=== PATIENT | female | born 1955 | race Caucasian/White ===

== ENCOUNTER → 2016-04-24 | Outpatient (CLI) | payer MEDICARE ==
[~2016-04-24] MED LIST: ACID REDUCER75 MG PO; ALBUTEROL0.09 MG/A2 INH; ALBUTEROL2.5 MG/0.5 INH; ALLERGY10 MG PO; CEFTIN500 M1 PO; CETIRIZINE10 MG PO; CRESTOR5 MG PO; DULARA INH; FLEXERIL10 MG PO; HYDROCODONE BIT1 T11 PO; IBUPROFEN200 M1 PO; LEVAQUIN750 MG PO; LISINOPRIL AND1 TAB PO; LOSARTAN POTASS1 TA5 PO; MOTRIN800 MG PO; NEXIUM20 M1 PO; NORCO 5-325 TA1 EACH PO; PERCOCET 325 MG1 TA2 PO; PERCOCET 325 MG1 TA5 PO; PREDNICOT20 MG PO; RANITIDINE HCL150 M1 PO; ROBAXIN500 MG PO; SINGULAIR10 M1 PO; SINGULAIR10 MG PO; SPIRIVA -- 3018 MCG INH; SPIRIVA18 MCG PO; SYMBICORT1 AE1 IH; SYMBICORT1 AE1 INH; TESSALON PERLE200 MG PO; THEO-24200 MG PO; THEOPHYLLINE PO; TRAMADOL HCL50 MG PO; VENTOLIN H0.09 MG/AC INH; VICODIN 5/500 505 MG PO; VITAMIN D50000 I2 PO; ZANTAC 300300 MG PO; ZOFRAN ODT4 MG SL; ZOFRAN4 MG PO
== END | disposition home or self-care (01) ==
LOC: LAB 12:14
PROVIDERS: Internal Medicine Critical Care Medicine
DX: J44.9 Chronic obstructive pulmonary disease, unspecified (principal)

== ENCOUNTER → 2016-07-22 | Outpatient (CLI) | payer MEDICARE | END | disposition home or self-care (01) | LOC: RAD 11:00 | DX: M81.0 Age-related osteoporosis without current pathological fracture (principal); M25.561 Pain in right knee; M25.562 Pain in left knee ==

== ENCOUNTER 2016-11-15 10:25 | Emergency (ER) | payer MEDICARE ==
[~2016-11-15] VITALS: Ht 152.4 cm; Wt 79.4 kg
[2016-11-15 10:42] VITALS: BP 112/64
[2016-11-15 11:21] LABS: BASO # 0.1 10*3/uL (0.0-0.1); BASO % 0.5 % (0.0-1.0); EOS # 0.2 10*3/uL (0.0-0.4); EOS % 1.1 % (1.0-4.0); HEMATOCRIT 39.7 % (37.0-47.0); HEMOGLOBIN 13.1 g/dl (12.0-16.0); IG # 0.1 10*3/uL (0.0-0.1); LYMPH # 3.2 10*3/uL (1.3-4.4); LYMPH % 22.4 % (27.0-41.0); MEAN CELL VOLUME 89.6 fl (81.0-99.0); MEAN CORPUSCULAR HGB 29.6 pg (27.0-31.0); MONO # 1.4 10*3/uL (0.1-1.0); MONO % 9.7 % (3.0-9.0); NEUT # 9.5 10*3/uL (2.3-7.9); NEUT % 65.9 % (47.0-73.0); PLATELET COUNT AUTOMATED 241 10*3/uL (130-400); RED BLOOD COUNT 4.43 10*6/uL (4.10-5.10); RED CELL DISTRI WIDTH 14.3 % (0-14.5); WHITE BLOOD COUNT 14.4 10*3/uL (4.8-10.8)
[2016-11-15 11:36] LABS: ALBUMIN 3.7 gm/dl (3.1-4.5); ALKALINE PHOSPHATASE 89 U/L (45-117); BILIRUBIN, TOTAL 0.7 mg/dl (0.2-1.0); BUN 11 mg/dl (7-24); CARBON DIOXIDE 27 mmol/L (21-32); CHLORIDE 100 mmol/L (98-107); EST GLOM FILT AFRICAN AMERICAN > 60 ml/min; GLUCOSE 101 mg/dL (65-99); POTASSIUM 3.6 mmol/L (3.5-5.1); SGOT/AST 19 IU/L (3-35); SGPT/ALT 30 U/L (12-78); SODIUM 135 mmol/L (136-145); TOTAL PROTEIN 7.5 gm/dL (6.4-8.2)
[2016-11-15 12:27] LABS: BILIRUBIN 1+ (NEGATIVE); BLOOD NEGATIVE (NEGATIVE); CLARITY SL CLOUDY (CLEAR); COLOR YELLOW (YELLOW); GLUCOSE NEGATIVE (NEGATIVE); KETONE TRACE (NEGATIVE); LEUKO ESTERASE NEGATIVE (NEGATIVE); NITRITE NEGATIVE (NEGATIVE); PROTEIN 1+ (NEGATIVE); SPECIFIC GRAVITY 1.025 (1.005-1.030)
[2016-11-15 12:36] LABS: BACTERIA TRACE; MUCOUS 1+
[2016-11-15 12:37] LABS: URINE REFLEX COMMENT NO (NO)
[2016-11-15] MEDS ORDERED: AUGMENTIN 875875 MG PO (13:06)
[2016-11-15] MEDS ORDERED: NORCO 5-325 TA1 EACH PO (13:06)
[2016-11-15] MEDS ORDERED: Zofran4 MG PO (13:06)
== END 2016-11-15 14:09 | disposition home or self-care (01) ==
LOC: ED 10:25 → EDHOLD 12:20 → ED 14:09
PROVIDERS: Emergency Medicine
DX: K57.32 Diverticulitis of large intestine without perforation or abscess without bleeding (principal); R10.84 Generalized abdominal pain; J44.9 Chronic obstructive pulmonary disease, unspecified; K21.9 Gastro-esophageal reflux disease without esophagitis; I10 Essential (primary) hypertension; F17.200 Nicotine dependence, unspecified, uncomplicated; Z87.442 Personal history of urinary calculi; Z90.49 Acquired absence of other specified parts of digestive tract; Z79.899 Other long term (current) drug therapy; Z88.1 Allergy status to other antibiotic agents; Z88.6 Allergy status to analgesic agent

== ENCOUNTER → 2017-09-30 | Outpatient (CLI) | payer MEDICARE ==
[~2017-09-30] MED LIST changes: +AUGMENTIN 875875 MG PO; +Zofran4 MG PO
== END | disposition home or self-care (01) ==
LOC: RAD 11:18
DX: J43.9 Emphysema, unspecified (principal)

== ENCOUNTER → 2017-12-29 | Outpatient (CLI) | payer MEDICARE | END | disposition home or self-care (01) | LOC: RESCLI 00:55 | DX: J43.9 Emphysema, unspecified (principal); K21.9 Gastro-esophageal reflux disease without esophagitis; E78.5 Hyperlipidemia, unspecified; I10 Essential (primary) hypertension; F32.9 Major depressive disorder, single episode, unspecified; M81.0 Age-related osteoporosis without current pathological fracture; M17.31 Unilateral post-traumatic osteoarthritis, right knee; G89.29 Other chronic pain; M17.12 Unilateral primary osteoarthritis, left knee; K57.90 Diverticulosis of intestine, part unspecified, without perforation or abscess without bleeding; Z79.899 Other long term (current) drug therapy; Z88.8 Allergy status to other drugs, medicaments and biological substances ==

== ENCOUNTER → 2018-01-28 | Outpatient (CLI) | payer MEDICARE ==
[2018-01-28 10:28] LABS: BASO # 0.1 10*3/uL (0.0-0.1); BASO % 1.2 % (0.0-1.0); EOS # 0.3 10*3/uL (0.0-0.4); EOS % 3.8 % (1.0-4.0); HEMATOCRIT 42.7 % (37.0-47.0); LYMPH # 3.3 10*3/uL (1.3-4.4); LYMPH % 40.3 % (27.0-41.0); MEAN CELL VOLUME 91.8 fl (81.0-99.0); MEAN CORPUSCULAR HGB 30.1 pg (27.0-31.0); MEAN CORPUSCULAR HGB CONC 32.8 g/dl (33.0-37.0); MEAN PLATELET VOLUME 11.4 fl (9.6-12.3); MONO # 0.6 10*3/uL (0.1-1.0); MONO % 7.6 % (3.0-9.0); NEUT # 3.8 10*3/uL (2.3-7.9); NEUT % 46.9 % (47.0-73.0); PLATELET COUNT AUTOMATED 241 10*3/uL (130-400); RED BLOOD COUNT 4.65 10*6/uL (4.10-5.10); RED CELL DISTRI WIDTH 13.8 % (0-14.5); WHITE BLOOD COUNT 8.1 10*3/uL (4.8-10.8)
[2018-01-28 10:46] LABS: ALBUMIN 3.7 gm/dl (3.1-4.5); BUN 17 mg/dl (7-24); CHLORIDE 102 mmol/L (98-107); CHOLESTEROL 215 mg/dL (<200); CREATININE 0.69 mg/dL (0.55-1.02); POTASSIUM 3.5 mmol/L (3.5-5.1); SGOT/AST 14 IU/L (3-35); SGPT/ALT 21 U/L (12-78); SODIUM 136 mmol/L (136-145); TOTAL PROTEIN 7.4 gm/dL (6.4-8.2); TRIGLYCERIDES 114 mg/dl (<150); VLDL CHOLESTEROL 23 mg/dL (6-40)
[2018-01-28 10:55] LABS: ALKALINE PHOSPHATASE 69 U/L (45-117); HDL CHOLESTEROL 65 mg/dl (40-60); LDL CHOLESTEROL 127 mg/dL (9-159)
== END | disposition home or self-care (01) ==
LOC: LAB 09:42
PROVIDERS: Internal Medicine Pulmonary Disease
DX: I10 Essential (primary) hypertension (principal); E78.5 Hyperlipidemia, unspecified; G89.29 Other chronic pain; Z79.899 Other long term (current) drug therapy

== ENCOUNTER → 2018-02-02 | Outpatient (CLI) | payer MEDICARE | END | disposition home or self-care (01) | LOC: RESCLI 01:18 | DX: J43.9 Emphysema, unspecified (principal); K21.9 Gastro-esophageal reflux disease without esophagitis; E78.5 Hyperlipidemia, unspecified; J45.909 Unspecified asthma, uncomplicated; I10 Essential (primary) hypertension; F32.9 Major depressive disorder, single episode, unspecified; M81.0 Age-related osteoporosis without current pathological fracture; M17.31 Unilateral post-traumatic osteoarthritis, right knee; G89.29 Other chronic pain; M17.12 Unilateral primary osteoarthritis, left knee; K57.90 Diverticulosis of intestine, part unspecified, without perforation or abscess without bleeding ==

== ENCOUNTER → 2018-06-23 | Outpatient (CLI) | payer OTHER ==
[~2018-06-23] MED LIST changes: +DOXYCYCLINE100 M3 PO; -LOSARTAN POTASS1 TA5 PO; +LOSARTAN-HCTZ1 EACH PO; +MUCINEX ER600 MG PO; +PREDNISONE10 MG PO; +SYMB160 INH; -SYMBICORT1 AE1 INH; +TAMIFLU 75MG CA75 MG PO; -THEO-24200 MG PO; +THEO-24400 MG PO
== END | disposition home or self-care (01) ==
LOC: RESCLI 01:44
DX: J43.9 Emphysema, unspecified (principal); K21.9 Gastro-esophageal reflux disease without esophagitis; I10 Essential (primary) hypertension; K57.90 Diverticulosis of intestine, part unspecified, without perforation or abscess without bleeding; J30.2 Other seasonal allergic rhinitis; R00.0 Tachycardia, unspecified; Z79.899 Other long term (current) drug therapy; Z90.49 Acquired absence of other specified parts of digestive tract

== ENCOUNTER → 2018-10-28 | Outpatient (CLI) | payer OTHER | END | disposition home or self-care (01) | LOC: RESCLI 00:38 | DX: J43.9 Emphysema, unspecified (principal); F17.219 Nicotine dependence, cigarettes, with unspecified nicotine-induced disorders; I10 Essential (primary) hypertension; K21.9 Gastro-esophageal reflux disease without esophagitis; M25.521 Pain in right elbow; M25.522 Pain in left elbow; J30.2 Other seasonal allergic rhinitis; Z71.6 Tobacco abuse counseling; Z79.899 Other long term (current) drug therapy ==

== ENCOUNTER → 2019-01-05 | Outpatient (CLI) | payer OTHER | END | disposition home or self-care (01) | LOC: RESCLI 02:16 | DX: J30.2 Other seasonal allergic rhinitis (principal); I10 Essential (primary) hypertension; J43.9 Emphysema, unspecified; K21.9 Gastro-esophageal reflux disease without esophagitis; Z79.899 Other long term (current) drug therapy ==

== ENCOUNTER → 2019-05-24 | Outpatient (CLI) | payer OTHER | END | disposition home or self-care (01) | LOC: RESCLI 02:06 | DX: Z23 Encounter for immunization (principal); F32.1 Major depressive disorder, single episode, moderate; J43.9 Emphysema, unspecified; K21.9 Gastro-esophageal reflux disease without esophagitis; I10 Essential (primary) hypertension; F17.210 Nicotine dependence, cigarettes, uncomplicated; Z79.899 Other long term (current) drug therapy ==

== ENCOUNTER 2019-07-24 18:55 | Emergency (ER) | payer OTHER ==
[~2019-07-24] VITALS: Wt 90.7 kg
[2019-07-24 19:32] LABS: BASO # 0.1 10*3/uL (0.0-0.1); BASO % 0.9 % (0.0-1.0); EOS # 0.2 10*3/uL (0.0-0.4); EOS % 2.1 % (1.0-4.0); HEMATOCRIT 41.5 % (37.0-47.0); LYMPH # 4.6 10*3/uL (1.3-4.4); LYMPH % 42.6 % (27.0-41.0); MEAN CELL VOLUME 91.4 fl (81.0-99.0); MEAN CORPUSCULAR HGB 29.7 pg (27.0-31.0); MEAN CORPUSCULAR HGB CONC 32.5 g/dl (33.0-37.0); MEAN PLATELET VOLUME 11.1 fl (9.6-12.3); MONO # 0.8 10*3/uL (0.1-1.0); NEUT % 47.1 % (47.0-73.0); PLATELET COUNT AUTOMATED 228 10*3/uL (130-400); RED BLOOD COUNT 4.54 10*6/uL (4.10-5.10); RED CELL DISTRI WIDTH 14.3 % (0-14.5); WHITE BLOOD COUNT 10.7 10*3/uL (4.8-10.8)
[2019-07-24 19:49] LABS: ALBUMIN 3.7 gm/dl (3.1-4.5); ALKALINE PHOSPHATASE 77 U/L (45-117); BUN 15 mg/dl (7-24); CHLORIDE 106 mmol/L (98-107); CREATININE 0.65 mg/dL (0.55-1.02); POTASSIUM 3.4 mmol/L (3.5-5.1); SGOT/AST 21 IU/L (3-35); SGPT/ALT 39 U/L (12-78); SODIUM 136 mmol/L (136-145); TOTAL PROTEIN 7.5 gm/dL (6.4-8.2); TROPONIN I < 0.015 ng/ml (<0.045)
[2019-07-24 19:51] LABS: ACT PARTIAL THROMBO TIME 27.4 SECONDS (20.0-32.1)
[2019-07-24] MEDS ORDERED: TYLENOL325 M1 PO (22:54)
[2019-07-24] MEDS ORDERED: THEOPHYLLINE A200 M1 PO (22:54)
[2019-07-24] MEDS ORDERED: CELEXA20 MG PO (22:54)
[2019-07-24] MEDS ORDERED: LEVOFLOXACIN500 MG PO (22:54)
== END 2019-07-24 23:39 | disposition home or self-care (01) ==
LOC: ED 18:55
PROVIDERS: Emergency Medicine Emergency Medical Services
DX: J20.9 Acute bronchitis, unspecified (principal); J44.9 Chronic obstructive pulmonary disease, unspecified; F41.9 Anxiety disorder, unspecified; F41.0 Panic disorder [episodic paroxysmal anxiety]; I10 Essential (primary) hypertension; E78.5 Hyperlipidemia, unspecified; K21.9 Gastro-esophageal reflux disease without esophagitis; F17.200 Nicotine dependence, unspecified, uncomplicated; Z90.49 Acquired absence of other specified parts of digestive tract; Z88.8 Allergy status to other drugs, medicaments and biological substances; Z79.899 Other long term (current) drug therapy

== ENCOUNTER → 2019-10-28 | Outpatient (CLI) | payer OTHER ==
[~2019-10-28] MED LIST changes: +CELEXA20 MG PO; +LEVOFLOXACIN500 MG PO; +THEOPHYLLINE A200 M1 PO; +TYLENOL325 M1 PO
== END | disposition home or self-care (01) ==
LOC: RESCLI 01:49
DX: Z12.4 Encounter for screening for malignant neoplasm of cervix (principal); Z12.31 Encounter for screening mammogram for malignant neoplasm of breast; J43.9 Emphysema, unspecified; K21.9 Gastro-esophageal reflux disease without esophagitis; E78.5 Hyperlipidemia, unspecified; J45.909 Unspecified asthma, uncomplicated; I10 Essential (primary) hypertension; F32.9 Major depressive disorder, single episode, unspecified; M81.0 Age-related osteoporosis without current pathological fracture; M17.31 Unilateral post-traumatic osteoarthritis, right knee; G25.81 Restless legs syndrome; E66.01 Morbid (severe) obesity due to excess calories; Z68.45 Body mass index [BMI] 70 or greater, adult

== ENCOUNTER → 2019-11-14 | Outpatient (CLI) | payer OTHER ==
[~2019-11-14] MED LIST changes: +MUCUS-ER MAX1200 MG PO; +TESSALON PERLE100 M1 PO
== END | disposition home or self-care (01) ==
LOC: RAD 13:30 → MAMMO 14:00
DX: Z12.31 Encounter for screening mammogram for malignant neoplasm of breast (principal); M85.89 Other specified disorders of bone density and structure, multiple sites; M81.0 Age-related osteoporosis without current pathological fracture

== ENCOUNTER 2019-11-15 09:27 | Emergency (ER) | payer OTHER ==
[~2019-11-15] VITALS: Ht 167.6 cm; Wt 81.2 kg
[~2019-11-15 09:27] MED LIST changes: -MUCUS-ER MAX1200 MG PO; -TESSALON PERLE100 M1 PO
[2019-11-15] MEDS ORDERED: AUGMENTIN 875875 MG PO (09:39)
[2019-11-15] MEDS ORDERED: MUCUS-ER MAX1200 MG PO (09:49)
[2019-11-15] MEDS ORDERED: TESSALON PERLE100 M1 PO (09:49)
== END 2019-11-15 09:40 | disposition home or self-care (01) ==
LOC: ED 09:27
DX: H65.92 Unspecified nonsuppurative otitis media, left ear (principal); J44.9 Chronic obstructive pulmonary disease, unspecified; K21.9 Gastro-esophageal reflux disease without esophagitis; I10 Essential (primary) hypertension; E78.5 Hyperlipidemia, unspecified; Z79.899 Other long term (current) drug therapy

== ENCOUNTER → 2019-11-15 | Outpatient (CLI) | payer OTHER ==
[2019-11-15 10:21] LABS: BASO # 0.1 10*3/uL (0.0-0.1); BASO % 0.7 % (0.0-1.0); EOS # 0.3 10*3/uL (0.0-0.4); EOS % 2.7 % (1.0-4.0); HEMATOCRIT 41.6 % (37.0-47.0); LYMPH # 3.8 10*3/uL (1.3-4.4); LYMPH % 33.3 % (27.0-41.0); MEAN CORPUSCULAR HGB 28.9 pg (27.0-31.0); MEAN CORPUSCULAR HGB CONC 31.7 g/dl (33.0-37.0); MEAN PLATELET VOLUME 10.7 fl (9.6-12.3); MONO % 8.6 % (3.0-9.0); NEUT # 6.1 10*3/uL (2.3-7.9); NEUT % 54.3 % (47.0-73.0); PLATELET COUNT AUTOMATED 270 10*3/uL (130-400); RED BLOOD COUNT 4.57 10*6/uL (4.10-5.10); RED CELL DISTRI WIDTH 13.8 % (0-14.5); WHITE BLOOD COUNT 11.3 10*3/uL (4.8-10.8)
[2019-11-15 10:53] LABS: ALBUMIN 3.6 gm/dl (3.1-4.5); ALKALINE PHOSPHATASE 82 U/L (45-117); BUN 19 mg/dl (7-24); CHLORIDE 105 mmol/L (98-107); CHOLESTEROL 230 mg/dL (<200); CREATININE 0.77 mg/dL (0.55-1.02); HDL CHOLESTEROL 64 mg/dl (40-60); LDL CHOLESTEROL 138 mg/dL (9-159); SGOT/AST 13 IU/L (3-35); SGPT/ALT 22 U/L (12-78); SODIUM 134 mmol/L (136-145); TOTAL PROTEIN 7.6 gm/dL (6.4-8.2); TRIGLYCERIDES 138 mg/dl (<150); VLDL CHOLESTEROL 28 mg/dL (6-40)
== END | disposition home or self-care (01) ==
LOC: LAB 09:57
PROVIDERS: Hospitalist
DX: E78.5 Hyperlipidemia, unspecified (principal); G25.81 Restless legs syndrome; F32.9 Major depressive disorder, single episode, unspecified; Z68.45 Body mass index [BMI] 70 or greater, adult; Z79.899 Other long term (current) drug therapy

== ENCOUNTER 2019-11-28 12:48 | Emergency (ER) | payer OTHER ==
[~2019-11-28] VITALS: Wt 79.8 kg
[~2019-11-28 12:48] MED LIST changes: +MUCUS-ER MAX1200 MG PO; +TESSALON PERLE100 M1 PO
[2019-11-28] MEDS ORDERED: NAPROXEN250 MG PO (16:02)
[2019-11-28] MEDS ORDERED: TYLENOL325 M1 PO (16:02)
[2019-11-28] MEDS ORDERED: MEDROL DOSEPAK4 MG PO (16:12)
== END 2019-11-28 16:11 | disposition home or self-care (01) ==
LOC: ED 12:48
DX: S20.212A Contusion of left front wall of thorax, initial encounter (principal); J44.9 Chronic obstructive pulmonary disease, unspecified; K21.9 Gastro-esophageal reflux disease without esophagitis; E78.5 Hyperlipidemia, unspecified; I10 Essential (primary) hypertension; Z88.1 Allergy status to other antibiotic agents; Z88.8 Allergy status to other drugs, medicaments and biological substances; Z79.899 Other long term (current) drug therapy; Z87.891 Personal history of nicotine dependence; W18.39XA Other fall on same level, initial encounter; Y93.89 Activity, other specified; Y92.89 Other specified places as the place of occurrence of the external cause; Y99.8 Other external cause status

== ENCOUNTER → 2019-11-30 | Outpatient (CLI) | payer OTHER ==
[~2019-11-30] MED LIST changes: +MEDROL DOSEPAK4 MG PO; +NAPROXEN250 MG PO
== END | disposition home or self-care (01) ==
LOC: RESCLI 01:08
PROVIDERS: ATTEND Internal Medicine Nephrology
DX: J43.9 Emphysema, unspecified (principal); K21.9 Gastro-esophageal reflux disease without esophagitis; E78.5 Hyperlipidemia, unspecified; J45.909 Unspecified asthma, uncomplicated; I10 Essential (primary) hypertension; F32.9 Major depressive disorder, single episode, unspecified; M81.0 Age-related osteoporosis without current pathological fracture; G89.29 Other chronic pain; K58.9 Irritable bowel syndrome, unspecified; F17.219 Nicotine dependence, cigarettes, with unspecified nicotine-induced disorders; G25.81 Restless legs syndrome; M85.89 Other specified disorders of bone density and structure, multiple sites; R73.03 Prediabetes; Z79.899 Other long term (current) drug therapy; Z98.890 Other specified postprocedural states; Z88.8 Allergy status to other drugs, medicaments and biological substances

== ENCOUNTER → 2019-12-29 | Outpatient (CLI) | payer OTHER | END | disposition home or self-care (01) | LOC: RESCLI 01:27 | PROVIDERS: ATTEND Social Worker Clinical | DX: J44.1 Chronic obstructive pulmonary disease with (acute) exacerbation (principal); G25.81 Restless legs syndrome; F32.9 Major depressive disorder, single episode, unspecified; K21.9 Gastro-esophageal reflux disease without esophagitis; I10 Essential (primary) hypertension; G89.29 Other chronic pain; J45.909 Unspecified asthma, uncomplicated; M85.89 Other specified disorders of bone density and structure, multiple sites; E78.5 Hyperlipidemia, unspecified; E55.9 Vitamin D deficiency, unspecified; J30.2 Other seasonal allergic rhinitis; Z79.899 Other long term (current) drug therapy; Z98.890 Other specified postprocedural states; Z90.49 Acquired absence of other specified parts of digestive tract; Z98.51 Tubal ligation status; Z88.8 Allergy status to other drugs, medicaments and biological substances ==

== ENCOUNTER → 2020-03-13 | Outpatient (CLI) | payer OTHER | END | disposition home or self-care (01) | LOC: RESCLI 03-12 00:37 | PROVIDERS: ATTEND Internal Medicine | DX: J43.9 Emphysema, unspecified (principal); K21.9 Gastro-esophageal reflux disease without esophagitis; E78.5 Hyperlipidemia, unspecified; J30.9 Allergic rhinitis, unspecified; I10 Essential (primary) hypertension; F32.9 Major depressive disorder, single episode, unspecified; M81.0 Age-related osteoporosis without current pathological fracture; G89.29 Other chronic pain; K58.9 Irritable bowel syndrome, unspecified; G25.81 Restless legs syndrome; E66.01 Morbid (severe) obesity due to excess calories; E11.9 Type 2 diabetes mellitus without complications; J01.11 Acute recurrent frontal sinusitis ==

== ENCOUNTER → 2020-04-05 | Outpatient (CLI) | payer OTHER ==
[2020-04-05 11:01] LABS: BASO # 0.1 10*3/uL (0.0-0.1); BASO % 0.9 % (0.0-1.0); EOS # 0.3 10*3/uL (0.0-0.4); EOS % 3.9 % (1.0-4.0); HEMATOCRIT 37.9 % (37.0-47.0); LYMPH # 3.6 10*3/uL (1.3-4.4); LYMPH % 41.2 % (27.0-41.0); MEAN CELL VOLUME 92.7 fl (81.0-99.0); MEAN CORPUSCULAR HGB 28.6 pg (27.0-31.0); MEAN CORPUSCULAR HGB CONC 30.9 g/dl (33.0-37.0); MEAN PLATELET VOLUME 11.1 fl (9.6-12.3); MONO # 0.6 10*3/uL (0.1-1.0); MONO % 7.3 % (3.0-9.0); NEUT # 4.1 10*3/uL (2.3-7.9); NEUT % 46.5 % (47.0-73.0); PLATELET COUNT AUTOMATED 224 10*3/uL (130-400); RED BLOOD COUNT 4.09 10*6/uL (4.10-5.10); WHITE BLOOD COUNT 8.8 10*3/uL (4.8-10.8)
[2020-04-05 11:24] LABS: ALBUMIN 3.4 gm/dl (3.1-4.5); ALKALINE PHOSPHATASE 68 U/L (45-117); BUN 13 mg/dl (7-24); CHLORIDE 104 mmol/L (98-107); CREATININE 0.67 mg/dL (0.55-1.02); POTASSIUM 3.8 mmol/L (3.5-5.1); SGOT/AST 13 IU/L (3-35); SGPT/ALT 23 U/L (12-78); SODIUM 139 mmol/L (136-145); TOTAL PROTEIN 6.9 gm/dL (6.4-8.2)
[2020-04-05 12:10] LABS: VITAMIN D, 25-HYDROXY 24.6 ng/mL (30-100)
== END | disposition home or self-care (01) ==
LOC: LAB 09:57
PROVIDERS: Hospitalist; ATTEND Internal Medicine Nephrology
DX: M81.0 Age-related osteoporosis without current pathological fracture (principal); G25.81 Restless legs syndrome; E11.9 Type 2 diabetes mellitus without complications

== ENCOUNTER → 2020-06-26 | Outpatient (CLI) | payer OTHER | END | disposition home or self-care (01) | LOC: RESCLI 00:17 | PROVIDERS: ATTEND Internal Medicine | DX: G47.33 Obstructive sleep apnea (adult) (pediatric) (principal); J43.9 Emphysema, unspecified; K21.9 Gastro-esophageal reflux disease without esophagitis; E78.5 Hyperlipidemia, unspecified; J45.909 Unspecified asthma, uncomplicated; I10 Essential (primary) hypertension; F32.9 Major depressive disorder, single episode, unspecified; M81.0 Age-related osteoporosis without current pathological fracture; M17.31 Unilateral post-traumatic osteoarthritis, right knee; G89.29 Other chronic pain; K58.9 Irritable bowel syndrome, unspecified; F17.219 Nicotine dependence, cigarettes, with unspecified nicotine-induced disorders; F32.1 Major depressive disorder, single episode, moderate; G25.81 Restless legs syndrome; E66.01 Morbid (severe) obesity due to excess calories; E55.9 Vitamin D deficiency, unspecified; E11.9 Type 2 diabetes mellitus without complications; R91.1 Solitary pulmonary nodule; Z79.84 Long term (current) use of oral hypoglycemic drugs; Z79.899 Other long term (current) drug therapy; Z98.51 Tubal ligation status; Z90.49 Acquired absence of other specified parts of digestive tract; Z98.890 Other specified postprocedural states; Z88.8 Allergy status to other drugs, medicaments and biological substances ==

== ENCOUNTER → 2020-07-13 | Outpatient (CLI) | payer OTHER | END | disposition home or self-care (01) | LOC: CARD 07-12 12:00 | PROVIDERS: ATTEND Family Medicine | DX: G47.33 Obstructive sleep apnea (adult) (pediatric) (principal) ==

== ENCOUNTER → 2020-09-04 | Outpatient (CLI) | payer OTHER | END | disposition home or self-care (01) | LOC: RESCLI 00:32 | PROVIDERS: ATTEND Student in an Organized Health Care Education/Training Program | DX: J43.9 Emphysema, unspecified (principal); K21.9 Gastro-esophageal reflux disease without esophagitis; E78.5 Hyperlipidemia, unspecified; J45.909 Unspecified asthma, uncomplicated; I10 Essential (primary) hypertension; F32.9 Major depressive disorder, single episode, unspecified; M81.0 Age-related osteoporosis without current pathological fracture; M17.31 Unilateral post-traumatic osteoarthritis, right knee; G89.29 Other chronic pain; K58.9 Irritable bowel syndrome, unspecified; F32.1 Major depressive disorder, single episode, moderate; G25.81 Restless legs syndrome; E66.01 Morbid (severe) obesity due to excess calories; E55.9 Vitamin D deficiency, unspecified; E11.9 Type 2 diabetes mellitus without complications; G47.33 Obstructive sleep apnea (adult) (pediatric); R91.1 Solitary pulmonary nodule; R55 Syncope and collapse; Z79.899 Other long term (current) drug therapy; Z79.84 Long term (current) use of oral hypoglycemic drugs; Z98.890 Other specified postprocedural states; Z88.8 Allergy status to other drugs, medicaments and biological substances ==

== ENCOUNTER → 2020-11-21 | Outpatient (CLI) | payer OTHER | END | disposition home or self-care (01) | LOC: LAB 13:37 | PROVIDERS: ATTEND Internal Medicine Cardiovascular Disease | DX: Z20.822 Contact with and (suspected) exposure to COVID-19 (principal); Z13.83 Encounter for screening for respiratory disorder NEC ==

== ENCOUNTER 2021-02-07 11:20 | Inpatient (IN) | payer OTHER ==
[~2021-02-07] VITALS: Ht 165.1 cm; Wt 82.6 kg
[2021-02-07] VITALS (9 sets, daily range): BP systolic 122–158; BP diastolic 50–72
[~2021-02-07 11:20] MED LIST changes: +CELEXA40 MG PO; +DOXYCYCLINE150 MG PO; +GLUMETZA500 MG PO; +PROAIR HFA8.5 GM INH; +TENORMIN50 MG PO
[2021-02-07 12:03] LABS: BASO % 0.2 % (0.0-1.0); EOS % 0.1 % (1.0-4.0); HEMATOCRIT 35.1 % (37.0-47.0); LYMPH # 2.8 10*3/uL (1.3-4.4); LYMPH % 18.8 % (27.0-41.0); MEAN CELL VOLUME 91.4 fl (81.0-99.0); MEAN CORPUSCULAR HGB 28.9 pg (27.0-31.0); MEAN CORPUSCULAR HGB CONC 31.6 g/dl (33.0-37.0); MEAN PLATELET VOLUME 10.5 fl (9.6-12.3); MONO % 6.5 % (3.0-9.0); NEUT # 10.8 10*3/uL (2.3-7.9); NEUT % 73.9 % (47.0-73.0); PLATELET COUNT AUTOMATED 262 10*3/uL (130-400); RED BLOOD COUNT 3.84 10*6/uL (4.10-5.10); RED CELL DISTRI WIDTH 14.6 % (0-14.5); WHITE BLOOD COUNT 14.6 10*3/uL (4.8-10.8)
[2021-02-07 12:14] LABS: ACT PARTIAL THROMBO TIME 23.1 SECONDS (20.0-32.1)
[2021-02-07 12:18] LABS: ALBUMIN 3.4 gm/dl (3.1-4.5); ALKALINE PHOSPHATASE 64 U/L (45-117); BUN 16 mg/dl (7-24); CHLORIDE 105 mmol/L (98-107); CREATININE 0.71 mg/dL (0.55-1.02); SGOT/AST 15 IU/L (3-35); SGPT/ALT 35 U/L (12-78); SODIUM 139 mmol/L (136-145)
[2021-02-07 12:22] LABS: TROPONIN I < 0.015 ng/ml (<0.045)
[2021-02-08] VITALS: BP 116/46
[2021-02-08 06:29] LABS: BASO % 0.1 % (0.0-1.0); HEMATOCRIT 32.7 % (37.0-47.0); LYMPH # 2.4 10*3/uL (1.3-4.4); LYMPH % 20.1 % (27.0-41.0); MEAN CORPUSCULAR HGB 28.7 pg (27.0-31.0); MEAN CORPUSCULAR HGB CONC 30.6 g/dl (33.0-37.0); MEAN PLATELET VOLUME 10.8 fl (9.6-12.3); MONO # 0.7 10*3/uL (0.1-1.0); MONO % 5.9 % (3.0-9.0); NEUT # 8.7 10*3/uL (2.3-7.9); NEUT % 73.2 % (47.0-73.0); PLATELET COUNT AUTOMATED 225 10*3/uL (130-400); RED BLOOD COUNT 3.48 10*6/uL (4.10-5.10); RED CELL DISTRI WIDTH 14.7 % (0-14.5); WHITE BLOOD COUNT 11.9 10*3/uL (4.8-10.8)
[2021-02-08 06:30] LABS: ALBUMIN 2.9 gm/dl (3.1-4.5); BUN 18 mg/dl (7-24); CHLORIDE 106 mmol/L (98-107); POTASSIUM 4.3 mmol/L (3.5-5.1); SODIUM 139 mmol/L (136-145)
[2021-02-08 06:39] LABS: ALKALINE PHOSPHATASE 59 U/L (45-117); CHOLESTEROL 143 mg/dL (<200); CREATININE 0.46 mg/dL (0.55-1.02); FREE T4 0.88 ng/dl (0.76-1.46); LDL CHOLESTEROL 40 mg/dL (9-159); SGOT/AST 58 IU/L (3-35); SGPT/ALT 108 U/L (12-78); THYROID STIM HORMONE (HS) 0.576 uIU/ml (0.358-4.75); TOTAL PROTEIN 6.2 gm/dL (6.4-8.2); TRIGLYCERIDES 102 mg/dl (<150)
[2021-02-08 07:28] LABS: VITAMIN D, 25-HYDROXY 29.8 ng/mL (30-100)
[2021-02-08 08:00] VITALS: BP 137/55
[2021-02-08 12:00] VITALS: BP 126/68
[2021-02-08 16:00] VITALS: BP 118/50
[2021-02-08 20:00] VITALS: BP 130/68
[2021-02-09] VITALS: BP 136/61
[2021-02-09 06:17] LABS: BASO % 0.1 % (0.0-1.0); EOS % 0.1 % (1.0-4.0); HEMATOCRIT 33.2 % (37.0-47.0); LYMPH # 2.9 10*3/uL (1.3-4.4); LYMPH % 28.6 % (27.0-41.0); MEAN CELL VOLUME 95.1 fl (81.0-99.0); MEAN CORPUSCULAR HGB 28.7 pg (27.0-31.0); MEAN CORPUSCULAR HGB CONC 30.1 g/dl (33.0-37.0); MEAN PLATELET VOLUME 10.6 fl (9.6-12.3); MONO # 0.8 10*3/uL (0.1-1.0); NEUT # 6.3 10*3/uL (2.3-7.9); NEUT % 62.4 % (47.0-73.0); PLATELET COUNT AUTOMATED 219 10*3/uL (130-400); RED BLOOD COUNT 3.49 10*6/uL (4.10-5.10); RED CELL DISTRI WIDTH 14.8 % (0-14.5); WHITE BLOOD COUNT 10.1 10*3/uL (4.8-10.8)
[2021-02-09 06:28] LABS: ALKALINE PHOSPHATASE 60 U/L (45-117); BUN 19 mg/dl (7-24); CHLORIDE 106 mmol/L (98-107); CREATININE 0.53 mg/dL (0.55-1.02); POTASSIUM 3.9 mmol/L (3.5-5.1); SGOT/AST 24 IU/L (3-35); SGPT/ALT 85 U/L (12-78); SODIUM 139 mmol/L (136-145); TOTAL PROTEIN 6.4 gm/dL (6.4-8.2)
[2021-02-09 06:52] LABS: BILIRUBIN Negative (Negative); BLOOD Negative (Negative); CLARITY Clear (Clear); COLOR Yellow (Yellow); GLUCOSE Negative (Negative); KETONE Negative (Negative); LEUKO ESTERASE Negative (Negative); NITRITE Negative (Negative); SPECIFIC GRAVITY >= 1.030 (1.001-1.030); UROBILINOGEN 0.2 E.U./dl (0.0-1.0)
[2021-02-09 07:15] LABS: BACTERIA TRACE
[2021-02-09 07:16] LABS: MUCOUS 1+
[2021-02-09 08:00] VITALS: BP 105/62
[2021-02-09 12:00] VITALS: BP 128/65
[2021-02-09 16:00] VITALS: BP 145/67
[2021-02-09 20:00] VITALS: BP 155/66
[2021-02-10] VITALS: BP 152/76
[2021-02-10 08:00] VITALS: BP 151/80
[2021-02-10 12:00] VITALS: BP 141/65
[2021-02-10 16:00] VITALS: BP 121/52
[2021-02-10 20:00] VITALS: BP 149/66
[2021-02-11] VITALS: BP 137/96
[2021-02-11 08:00] VITALS: BP 140/64
[2021-02-11 12:00] VITALS: BP 122/75
[2021-02-11 16:00] VITALS: BP 148/69
[2021-02-11 20:00] VITALS: BP 137/64
[2021-02-11] MEDS ORDERED: ROPINIROLE HYDRO1 MG PO (23:12)
[2021-02-11] MEDS ORDERED: FLONASE ALLERG9.9 ML NAS (23:13)
[2021-02-11] MEDS ORDERED: LIPITOR20 MG PO (23:13)
[2021-02-11] MEDS ORDERED: NEXIUM40 MG PO (23:15)
[2021-02-12] VITALS: BP 145/61
[2021-02-12 06:19] LABS: HEMATOCRIT 32.1 % (37.0-47.0); MEAN CELL VOLUME 93.9 fl (81.0-99.0); MEAN CORPUSCULAR HGB 28.9 pg (27.0-31.0); MEAN CORPUSCULAR HGB CONC 30.8 g/dl (33.0-37.0); MEAN PLATELET VOLUME 10.8 fl (9.6-12.3); NUCLEATED RED BLOOD CELL 0.2 % (0.0-0.0); PLATELET COUNT AUTOMATED 203 10*3/uL (130-400); RED BLOOD COUNT 3.42 10*6/uL (4.10-5.10); RED CELL DISTRI WIDTH 15.2 % (0-14.5); WHITE BLOOD COUNT 11.4 10*3/uL (4.8-10.8)
[2021-02-12 06:35] LABS: CREATININE 0.49 mg/dL (0.55-1.02)
[2021-02-12 07:26] LABS: PLATELET SUFFICIENCY NORMAL (NORMAL); TOTAL CELLS COUNTED 100 #CELLS
[2021-02-12 07:27] LABS: BURR CELLS FEW
[2021-02-12 08:00] VITALS: BP 148/74
[2021-02-12 11:56] VITALS: BP 148/67
[2021-02-12 16:00] VITALS: BP 132/62
[2021-02-12 16:25] VITALS: BP 132/62
[2021-02-12 20:00] VITALS: BP 136/61
[2021-02-13] VITALS: BP 146/66
[2021-02-13 08:00] VITALS: BP 132/64
[2021-02-13] MEDS ORDERED: DOXYCYCLINE MO100 M1 PO (10:21)
[2021-02-13] MEDS ORDERED: VITAMIN D350 MC2 PO (10:21)
[2021-02-13] MEDS ORDERED: PREDNISONE10 MG PO (10:22)
[2021-02-13 12:00] VITALS: BP 121/54
== END 2021-02-13 14:15 | disposition home health service (06) | DRG 871 ==
LOC: ED 11:20 → 4E 16:23 → EDHOLD 16:23 → 4E 18:22
PROVIDERS: Internal Medicine; Physician Assistant; ADMIT Family Medicine; ATTEND Family Medicine
DX: A41.9 Sepsis, unspecified organism (principal); J18.9 Pneumonia, unspecified organism; J96.20 Acute and chronic respiratory failure, unspecified whether with hypoxia or hypercapnia; Z20.822 Contact with and (suspected) exposure to COVID-19; D64.9 Anemia, unspecified; R73.9 Hyperglycemia, unspecified; K57.90 Diverticulosis of intestine, part unspecified, without perforation or abscess without bleeding; E55.9 Vitamin D deficiency, unspecified; J43.9 Emphysema, unspecified; I10 Essential (primary) hypertension; E78.5 Hyperlipidemia, unspecified; J20.9 Acute bronchitis, unspecified; K21.9 Gastro-esophageal reflux disease without esophagitis; Z90.49 Acquired absence of other specified parts of digestive tract; Z88.8 Allergy status to other drugs, medicaments and biological substances; Z88.5 Allergy status to narcotic agent; Z87.891 Personal history of nicotine dependence; Z88.1 Allergy status to other antibiotic agents; Z79.1 Long term (current) use of non-steroidal anti-inflammatories (NSAID); Z79.51 Long term (current) use of inhaled steroids; Z79.899 Other long term (current) drug therapy

== ENCOUNTER → 2021-02-19 | Outpatient (CLI) | payer OTHER ==
[~2021-02-19] MED LIST changes: +DOXYCYCLINE MO100 M1 PO; +FLONASE ALLERG9.9 ML NAS; +LIPITOR20 MG PO; +NEXIUM40 MG PO; +ROPINIROLE HYDRO1 MG PO; +VITAMIN D350 MC2 PO
== END | disposition home or self-care (01) ==
LOC: RESCLI 01:41
PROVIDERS: ATTEND Student in an Organized Health Care Education/Training Program
DX: R61 Generalized hyperhidrosis (principal); F41.9 Anxiety disorder, unspecified; K21.9 Gastro-esophageal reflux disease without esophagitis; E11.9 Type 2 diabetes mellitus without complications; E78.5 Hyperlipidemia, unspecified; E55.9 Vitamin D deficiency, unspecified; J45.909 Unspecified asthma, uncomplicated; J43.9 Emphysema, unspecified; G89.29 Other chronic pain; F32.9 Major depressive disorder, single episode, unspecified; J30.9 Allergic rhinitis, unspecified; G25.81 Restless legs syndrome; I10 Essential (primary) hypertension; J44.1 Chronic obstructive pulmonary disease with (acute) exacerbation; G47.33 Obstructive sleep apnea (adult) (pediatric); R91.1 Solitary pulmonary nodule; Z79.899 Other long term (current) drug therapy; Z88.8 Allergy status to other drugs, medicaments and biological substances; Z90.49 Acquired absence of other specified parts of digestive tract; Z96.661 Presence of right artificial ankle joint; Z98.890 Other specified postprocedural states

== ENCOUNTER → 2021-05-27 | Outpatient (CLI) | payer OTHER | END | disposition home or self-care (01) | LOC: RESCLI 00:24 | PROVIDERS: ATTEND Internal Medicine Nephrology | DX: E11.9 Type 2 diabetes mellitus without complications (principal); E78.5 Hyperlipidemia, unspecified; E55.9 Vitamin D deficiency, unspecified; K21.9 Gastro-esophageal reflux disease without esophagitis; J43.9 Emphysema, unspecified; G25.81 Restless legs syndrome; J30.9 Allergic rhinitis, unspecified; R13.10 Dysphagia, unspecified; G89.29 Other chronic pain; F32.9 Major depressive disorder, single episode, unspecified; I10 Essential (primary) hypertension; Z79.899 Other long term (current) drug therapy ==

== ENCOUNTER → 2021-07-01 | Outpatient (CLI) | payer OTHER | END | disposition home or self-care (01) | LOC: MAMMO 13:20 | PROVIDERS: ATTEND Internal Medicine Nephrology | DX: Z12.31 Encounter for screening mammogram for malignant neoplasm of breast (principal) ==

== ENCOUNTER → 2021-07-23 | Outpatient (CLI) | payer OTHER | END | disposition home or self-care (01) | LOC: RAD/SH 07-19 10:30 | PROVIDERS: ATTEND Internal Medicine | DX: R13.10 Dysphagia, unspecified (principal) ==

== ENCOUNTER 2021-08-30 15:00 | Emergency (ER) | payer OTHER ==
[~2021-08-30] VITALS: Wt 90.7 kg
[2021-08-30 16:39] LABS: BASO # 0.1 10*3/uL (0.0-0.1); BASO % 0.5 % (0.0-1.0); EOS # 0.2 10*3/uL (0.0-0.4); HEMATOCRIT 33.4 % (37.0-47.0); LYMPH # 2.8 10*3/uL (1.3-4.4); LYMPH % 25.2 % (27.0-41.0); MEAN CELL VOLUME 88.4 fl (81.0-99.0); MEAN CORPUSCULAR HGB 28.6 pg (27.0-31.0); MEAN CORPUSCULAR HGB CONC 32.3 g/dl (33.0-37.0); MEAN PLATELET VOLUME 10.8 fl (9.6-12.3); MONO # 0.9 10*3/uL (0.1-1.0); MONO % 7.7 % (3.0-9.0); NEUT # 7.2 10*3/uL (2.3-7.9); NEUT % 64.2 % (47.0-73.0); PLATELET COUNT AUTOMATED 231 10*3/uL (130-400); RED BLOOD COUNT 3.78 10*6/uL (4.10-5.10); RED CELL DISTRI WIDTH 13.8 % (0-14.5); WHITE BLOOD COUNT 11.2 10*3/uL (4.8-10.8)
[2021-08-30 16:50] LABS: ACT PARTIAL THROMBO TIME 26.3 SECONDS (20.0-32.1)
[2021-08-30] MEDS ORDERED: DICYCLOMINE HCL10 MG PO (17:03)
[2021-08-30] MEDS ORDERED: LORATADINE-D 11 EACH PO (17:04)
[2021-08-30] MEDS ORDERED: LEVETIRACETAM250 MG PO (17:05)
[2021-08-30 17:07] LABS: BUN 19 mg/dl (7-24); CHLORIDE 101 mmol/L (98-107); CREATININE 0.73 mg/dL (0.55-1.02); LIPASE 72 U/L (73-393); SGOT/AST 15 IU/L (3-35); SGPT/ALT 19 U/L (12-78); SODIUM 135 mmol/L (136-145)
[2021-08-30 17:08] LABS: ALKALINE PHOSPHATASE 68 U/L (45-117)
== END 2021-08-30 21:10 | disposition short-term general hospital (02) ==
LOC: ED 15:00
PROVIDERS: Emergency Medicine
DX: S42.412A Displaced simple supracondylar fracture without intercondylar fracture of left humerus, initial encounter for closed fracture (principal); S66.912A Strain of unspecified muscle, fascia and tendon at wrist and hand level, left hand, initial encounter; S82.892A Other fracture of left lower leg, initial encounter for closed fracture; Z88.1 Allergy status to other antibiotic agents; Z79.899 Other long term (current) drug therapy; Z90.49 Acquired absence of other specified parts of digestive tract; Z98.890 Other specified postprocedural states; Z87.891 Personal history of nicotine dependence; W18.39XA Other fall on same level, initial encounter; Y93.89 Activity, other specified; Y92.89 Other specified places as the place of occurrence of the external cause; Y99.8 Other external cause status

== ENCOUNTER 2021-10-01 10:04 | Inpatient (IN) | payer OTHER ==
[~2021-10-01] VITALS: Ht 170.1 cm; Wt 91.7 kg
[~2021-10-01 10:04] MED LIST changes: +DICYCLOMINE HCL10 MG PO; +LEVETIRACETAM250 MG PO; +LORATADINE-D 11 EACH PO
[2021-10-01 10:05] VITALS: BP 119/51
[2021-10-01 10:32] LABS: BASO # 0.1 10*3/uL (0.0-0.1); BASO % 0.5 % (0.0-1.0); EOS # 0.3 10*3/uL (0.0-0.4); EOS % 2.1 % (1.0-4.0); HEMATOCRIT 29.7 % (37.0-47.0); LYMPH # 1.9 10*3/uL (1.3-4.4); LYMPH % 14.5 % (27.0-41.0); MEAN CELL VOLUME 92.8 fl (81.0-99.0); MEAN CORPUSCULAR HGB 28.8 pg (27.0-31.0); MEAN PLATELET VOLUME 10.9 fl (9.6-12.3); MONO # 1.4 10*3/uL (0.1-1.0); MONO % 11.1 % (3.0-9.0); NEUT # 9.1 10*3/uL (2.3-7.9); NEUT % 71.3 % (47.0-73.0); PLATELET COUNT AUTOMATED 229 10*3/uL (130-400); RED CELL DISTRI WIDTH 14.3 % (0-14.5); WHITE BLOOD COUNT 12.8 10*3/uL (4.8-10.8)
[2021-10-01 10:43] LABS: ACT PARTIAL THROMBO TIME 26.5 SECONDS (20.0-32.1)
[2021-10-01 10:47] LABS: ALKALINE PHOSPHATASE 70 U/L (45-117); BUN 10 mg/dl (7-24); CHLORIDE 99 mmol/L (98-107); SGOT/AST 12 IU/L (3-35); SGPT/ALT 15 U/L (12-78); SODIUM 136 mmol/L (136-145); TOTAL PROTEIN 6.3 gm/dL (6.4-8.2)
[2021-10-01 11:33] LABS: BILIRUBIN Negative (Negative); BLOOD Negative (Negative); CLARITY Cloudy (Clear); COLOR Yellow (Yellow); GLUCOSE Negative (Negative); KETONE Negative (Negative); LEUKO ESTERASE 3+ (Negative); NITRITE Positive (Negative); PH 5.5 (4.5-8.0); SPECIFIC GRAVITY 1.015 (1.001-1.030)
[2021-10-01 11:46] LABS: BACTERIA 4+; WBC TNTC wbc/hpf (0-5)
[2021-10-01 12:37] VITALS: BP 90/44
[2021-10-01 13:03] VITALS: BP 95/42
[2021-10-01 15:20] VITALS: BP 113/74
[2021-10-01] MEDS ORDERED: ZOFRAN4 MG PO (16:07)
[2021-10-01] MEDS ORDERED: METOPROLOL SUCC50 M1 PO (16:09)
[2021-10-01] MEDS ORDERED: VISTARIL25 MG PO (16:11)
[2021-10-01] MEDS ORDERED: TRAZODONE50 MG PO (16:13)
[2021-10-01] MEDS ORDERED: Lovenox40 MG/0.4 PO (16:13)
[2021-10-01 20:00] VITALS: BP 110/50; BP 114/53
[2021-10-01] MEDS ORDERED: ROXICODONE5 MG PO (20:20)
[2021-10-01] MEDS ORDERED: Ipratropium Brom3 ML INH (20:31)
[2021-10-02] VITALS: BP 124/54
[2021-10-02 06:09] LABS: HEMATOCRIT 27.6 % (37.0-47.0); MEAN CELL VOLUME 92.3 fl (81.0-99.0); MEAN CORPUSCULAR HGB 28.8 pg (27.0-31.0); MEAN CORPUSCULAR HGB CONC 31.2 g/dl (33.0-37.0); MEAN PLATELET VOLUME 11.2 fl (9.6-12.3); PLATELET COUNT AUTOMATED 195 10*3/uL (130-400); RED BLOOD COUNT 2.99 10*6/uL (4.10-5.10); RED CELL DISTRI WIDTH 14.7 % (0-14.5)
[2021-10-02 06:21] LABS: MANUAL DIFF REFLEX YES
[2021-10-02 06:23] LABS: ALKALINE PHOSPHATASE 74 U/L (45-117); BUN 10 mg/dl (7-24); CHLORIDE 105 mmol/L (98-107); POTASSIUM 3.9 mmol/L (3.5-5.1); SODIUM 137 mmol/L (136-145)
[2021-10-02 06:28] LABS: CHOLESTEROL 128 mg/dL (<200); CREATININE 0.52 mg/dL (0.55-1.02); FREE T4 0.89 ng/dl (0.76-1.46); LDL CHOLESTEROL 41 mg/dL (9-159); SGOT/AST 17 IU/L (3-35); SGPT/ALT 16 U/L (12-78); TOTAL PROTEIN 5.7 gm/dL (6.4-8.2); TRIGLYCERIDES 99 mg/dl (<150)
[2021-10-02 07:58] LABS: PLATELET SUFFICIENCY NORMAL (NORMAL); TOTAL CELLS COUNTED 100 #CELLS
[2021-10-02 08:00] VITALS: BP 108/50
[2021-10-02 12:00] VITALS: BP 98/42
[2021-10-02 16:00] VITALS: BP 107/40
[2021-10-02 20:00] VITALS: BP 109/50
[2021-10-03] VITALS: BP 107/50
[2021-10-03 08:00] VITALS: BP 95/38; BP 96/44
[2021-10-03 12:00] VITALS: BP 96/42
[2021-10-03 16:00] VITALS: BP 94/45
[2021-10-03 20:00] VITALS: BP 100/40
[2021-10-04] VITALS: BP 117/50
[2021-10-04 06:17] LABS: MEAN CELL VOLUME 90.6 fl (81.0-99.0); MEAN CORPUSCULAR HGB 28.5 pg (27.0-31.0); MEAN CORPUSCULAR HGB CONC 31.5 g/dl (33.0-37.0); MEAN PLATELET VOLUME 11.2 fl (9.6-12.3); PLATELET COUNT AUTOMATED 183 10*3/uL (130-400); RED BLOOD COUNT 2.98 10*6/uL (4.10-5.10); RED CELL DISTRI WIDTH 14.5 % (0-14.5)
[2021-10-04 06:21] LABS: BUN 8 mg/dl (7-24); CHLORIDE 105 mmol/L (98-107); CREATININE 0.38 mg/dL (0.55-1.02); POTASSIUM 3.5 mmol/L (3.5-5.1); SODIUM 141 mmol/L (136-145)
[2021-10-04 06:31] LABS: MANUAL DIFF REFLEX YES
[2021-10-04 07:18] LABS: BASOPHILS 1 % (0-1); PLATELET SUFFICIENCY NORMAL (NORMAL); TOTAL CELLS COUNTED 100 #CELLS
[2021-10-04 08:00] VITALS: BP 113/52
[2021-10-04 12:00] VITALS: BP 119/47
[2021-10-04 16:00] VITALS: BP 92/52
[2021-10-04 20:00] VITALS: BP 132/48
[2021-10-05] VITALS: BP 105/44
[2021-10-05 08:00] VITALS: BP 120/78
[2021-10-05 12:00] VITALS: BP 117/43
[2021-10-05 16:00] VITALS: BP 110/64
[2021-10-05 20:00] VITALS: BP 99/56
[2021-10-06] VITALS: BP 100/64
[2021-10-06 05:08] LABS: BUN 10 mg/dl (7-24); CHLORIDE 102 mmol/L (98-107); CREATININE 0.49 mg/dL (0.55-1.02); POTASSIUM 3.3 mmol/L (3.5-5.1); SODIUM 143 mmol/L (136-145)
[2021-10-06 06:33] LABS: BASO # 0.1 10*3/uL (0.0-0.1); BASO % 1.2 % (0.0-1.0); EOS # 0.6 10*3/uL (0.0-0.4); EOS % 9.6 % (1.0-4.0); HEMATOCRIT 28.4 % (37.0-47.0); LYMPH # 2.3 10*3/uL (1.3-4.4); LYMPH % 38.5 % (27.0-41.0); MEAN CELL VOLUME 92.5 fl (81.0-99.0); MEAN CORPUSCULAR HGB 27.7 pg (27.0-31.0); MEAN CORPUSCULAR HGB CONC 29.9 g/dl (33.0-37.0); MEAN PLATELET VOLUME 11.1 fl (9.6-12.3); MONO # 0.7 10*3/uL (0.1-1.0); MONO % 11.8 % (3.0-9.0); NEUT # 2.3 10*3/uL (2.3-7.9); NEUT % 38.1 % (47.0-73.0); PLATELET COUNT AUTOMATED 236 10*3/uL (130-400); RED BLOOD COUNT 3.07 10*6/uL (4.10-5.10); RED CELL DISTRI WIDTH 14.6 % (0-14.5); WHITE BLOOD COUNT 5.9 10*3/uL (4.8-10.8)
[2021-10-06 08:00] VITALS: BP 117/60
[2021-10-06] MEDS ORDERED: DOXYCYCLINE MO100 MG PO (09:36)
[2021-10-06] MEDS ORDERED: AMOX-CLAV 875-1 EACH PO (09:36)
[2021-10-06 12:00] VITALS: BP 87/59
== END 2021-10-06 13:35 | disposition home health service (06) | DRG 872 ==
LOC: ED 10:04 → 4E 12:09 → EDHOLD 12:09 → 4E 14:07
PROVIDERS: Emergency Medicine; Internal Medicine; Registered Nurse; ADMIT Family Medicine; ATTEND Family Medicine
DX: A41.9 Sepsis, unspecified organism (principal); E44.0 Moderate protein-calorie malnutrition; J96.11 Chronic respiratory failure with hypoxia; N30.00 Acute cystitis without hematuria; I10 Essential (primary) hypertension; E78.5 Hyperlipidemia, unspecified; E11.9 Type 2 diabetes mellitus without complications; D64.9 Anemia, unspecified; I95.9 Hypotension, unspecified; E87.6 Hypokalemia; J43.9 Emphysema, unspecified; G47.33 Obstructive sleep apnea (adult) (pediatric); F17.210 Nicotine dependence, cigarettes, uncomplicated; E66.01 Morbid (severe) obesity due to excess calories; S51.002A Unspecified open wound of left elbow, initial encounter; R91.1 Solitary pulmonary nodule; B96.20 Unspecified Escherichia coli [E. coli] as the cause of diseases classified elsewhere; B95.2 Enterococcus as the cause of diseases classified elsewhere; S81.802A Unspecified open wound, left lower leg, initial encounter; X58.XXXA Exposure to other specified factors, initial encounter; Z88.1 Allergy status to other antibiotic agents; Z88.8 Allergy status to other drugs, medicaments and biological substances; Z87.81 Personal history of (healed) traumatic fracture; Z90.49 Acquired absence of other specified parts of digestive tract; Z83.6 Family history of other diseases of the respiratory system; Z71.6 Tobacco abuse counseling; Y93.89 Activity, other specified; Y92.89 Other specified places as the place of occurrence of the external cause; Y99.8 Other external cause status; Z68.31 Body mass index [BMI] 31.0-31.9, adult

== ENCOUNTER → 2021-10-16 | Outpatient (CLI) | payer OTHER ==
[~2021-10-16] MED LIST changes: +AMOX-CLAV 875-1 EACH PO; +DOXYCYCLINE MO100 MG PO; +Ipratropium Brom3 ML INH; +Lovenox40 MG/0.4 PO; +METOPROLOL SUCC50 M1 PO; +ROXICODONE5 MG PO; +TRAZODONE50 MG PO; +VISTARIL25 MG PO
== END | disposition home or self-care (01) ==
LOC: RESCLI 14:34
PROVIDERS: ATTEND Internal Medicine
DX: F32.9 Major depressive disorder, single episode, unspecified (principal); G47.00 Insomnia, unspecified; G25.81 Restless legs syndrome; R11.0 Nausea; G40.909 Epilepsy, unspecified, not intractable, without status epilepticus; K58.9 Irritable bowel syndrome, unspecified; G89.29 Other chronic pain; E11.9 Type 2 diabetes mellitus without complications; K21.9 Gastro-esophageal reflux disease without esophagitis; E78.5 Hyperlipidemia, unspecified; I10 Essential (primary) hypertension; M79.604 Pain in right leg; Z90.49 Acquired absence of other specified parts of digestive tract; Z79.899 Other long term (current) drug therapy; Z90.710 Acquired absence of both cervix and uterus; Z79.82 Long term (current) use of aspirin; Z79.01 Long term (current) use of anticoagulants

== ENCOUNTER 2022-01-31 00:06 | Emergency (ER) | payer OTHER ==
[~2022-01-31] VITALS: Ht 167.6 cm; Wt 93.0 kg
[2022-01-31 00:49] LABS: BASO % 0.2 % (0.0-1.0); EOS # 0.1 10*3/uL (0.0-0.4); EOS % 1.3 % (1.0-4.0); HEMATOCRIT 33.1 % (37.0-47.0); LYMPH % 9.1 % (27.0-41.0); MEAN CELL VOLUME 86.9 fl (81.0-99.0); MEAN CORPUSCULAR HGB 27.3 pg (27.0-31.0); MEAN CORPUSCULAR HGB CONC 31.4 g/dl (33.0-37.0); MEAN PLATELET VOLUME 10.8 fl (9.6-12.3); MONO # 0.4 10*3/uL (0.1-1.0); MONO % 3.3 % (3.0-9.0); NEUT # 9.1 10*3/uL (2.3-7.9); NEUT % 85.7 % (47.0-73.0); PLATELET COUNT AUTOMATED 198 10*3/uL (130-400); RED BLOOD COUNT 3.81 10*6/uL (4.10-5.10); RED CELL DISTRI WIDTH 16.1 % (0-14.5); WHITE BLOOD COUNT 10.6 10*3/uL (4.8-10.8)
[2022-01-31 01:17] LABS: ALKALINE PHOSPHATASE 73 U/L (45-117); BUN 17 mg/dl (7-24); CHLORIDE 106 mmol/L (98-107); CREATININE 0.69 mg/dL (0.55-1.02); POTASSIUM 3.5 mmol/L (3.5-5.1); SGOT/AST 13 IU/L (3-35); SGPT/ALT 21 U/L (12-78); SODIUM 140 mmol/L (136-145); TOTAL PROTEIN 6.6 gm/dL (6.4-8.2)
[2022-01-31] MEDS ORDERED: ONDANSETRON4 MG SL (01:31)
== END 2022-01-31 02:07 | disposition home or self-care (01) ==
LOC: ED 00:06
PROVIDERS: Internal Medicine
DX: B34.9 Viral infection, unspecified (principal); Z20.822 Contact with and (suspected) exposure to COVID-19; D64.9 Anemia, unspecified; E83.42 Hypomagnesemia; Z88.1 Allergy status to other antibiotic agents; Z79.899 Other long term (current) drug therapy; Z90.49 Acquired absence of other specified parts of digestive tract; Z98.890 Other specified postprocedural states; Z87.891 Personal history of nicotine dependence

== ENCOUNTER 2022-02-02 09:25 | Inpatient (IN) | payer OTHER ==
[~2022-02-02] VITALS: Ht 167.6 cm; Wt 90.3 kg
[2022-02-02] VITALS (35 sets, daily range): BP systolic 70–117; BP diastolic 36–59
[~2022-02-02 09:25] MED LIST changes: +ONDANSETRON4 MG SL
[2022-02-02 10:01] LABS: ARTERIAL BLOOD GAS PH 7.401 (7.35-7.45); ARTERIAL BLOOD GAS PO2 69.6 (80-90)
[2022-02-02 10:54] LABS: HEMATOCRIT 30.6 % (37.0-47.0); MEAN CELL VOLUME 85.2 fl (81.0-99.0); MEAN CORPUSCULAR HGB CONC 31.7 g/dl (33.0-37.0); MEAN PLATELET VOLUME 11.1 fl (9.6-12.3); PLATELET COUNT AUTOMATED 159 10*3/uL (130-400); RED BLOOD COUNT 3.59 10*6/uL (4.10-5.10); RED CELL DISTRI WIDTH 16.6 % (0-14.5); WHITE BLOOD COUNT 10.7 10*3/uL (4.8-10.8)
[2022-02-02 11:00] LABS: MANUAL DIFF REFLEX YES
[2022-02-02 11:08] LABS: ACT PARTIAL THROMBO TIME 33.3 SECONDS (20.0-32.1); INTERNATIONAL NORM RATIO 1.1 (2.0-3.5)
[2022-02-02 11:13] LABS: CREATININE 1.2 mg/dL (0.55-1.02); POTASSIUM 3.6 mmol/L (3.5-5.1); TOTAL PROTEIN 5.9 gm/dL (6.4-8.2)
[2022-02-02 11:17] LABS: PLATELET SUFFICIENCY NORMAL (NORMAL); TOTAL CELLS COUNTED 100 #CELLS; TOXIC GRANULATION SLIGHT
[2022-02-02 11:18] LABS: DOHLE BODIES MODERATE; VACUOLATION OF NEUTROPHILS MODERATE
[2022-02-02 11:19] LABS: BURR CELLS FEW; ROULEAUX SLIGHT
[2022-02-02 17:54] LABS: ABG BASE EXCESS -6.1 mmol/L (-2.0-2.0); ARTERIAL BLOOD GAS PH 7.288 (7.35-7.45); ARTERIAL BLOOD GAS PO2 72.6 (80-90)
[2022-02-02 20:48] LABS: BILIRUBIN Negative (Negative); BLOOD 1+ (Negative); CLARITY Turbid (Clear); COLOR Yellow (Yellow); GLUCOSE Negative (Negative); KETONE Negative (Negative); LEUKO ESTERASE Negative (Negative); NITRITE Negative (Negative); SPECIFIC GRAVITY >= 1.030 (1.001-1.030); UROBILINOGEN 0.2 E.U./dl (0.0-1.0)
[2022-02-02 20:59] LABS: BACTERIA 4+; RBC 0-2 rbc/hpf (0-2)
[2022-02-02 21:00] LABS: HYALINE CAST 0-2
[2022-02-02 21:26] LABS: ABG BASE EXCESS -8.9 mmol/L (-2.0-2.0); ARTERIAL BLOOD GAS PH 7.201 (7.35-7.45); ARTERIAL BLOOD GAS PO2 112.2 (80-90)
[2022-02-03] VITALS (96 sets, daily range): BP systolic 88–139; BP diastolic 38–72
[2022-02-03 06:02] LABS: BUN 31 mg/dl (7-24); CHLORIDE 102 mmol/L (98-107); CREATININE 0.84 mg/dL (0.55-1.02); POTASSIUM 3.2 mmol/L (3.5-5.1); SGOT/AST 21 IU/L (3-35); SGPT/ALT 19 U/L (12-78); SODIUM 134 mmol/L (136-145); TOTAL PROTEIN 5.6 gm/dL (6.4-8.2)
[2022-02-03 06:03] LABS: ALKALINE PHOSPHATASE 75 U/L (45-117)
[2022-02-03 06:30] LABS: HEMATOCRIT 30.4 % (37.0-47.0); MEAN CELL VOLUME 87.6 fl (81.0-99.0); MEAN CORPUSCULAR HGB 26.8 pg (27.0-31.0); MEAN CORPUSCULAR HGB CONC 30.6 g/dl (33.0-37.0); MEAN PLATELET VOLUME 11.9 fl (9.6-12.3); PLATELET COUNT AUTOMATED 167 10*3/uL (130-400); RED BLOOD COUNT 3.47 10*6/uL (4.10-5.10); WHITE BLOOD COUNT 10.1 10*3/uL (4.8-10.8)
[2022-02-03 06:55] LABS: MANUAL DIFF REFLEX YES
[2022-02-03 07:34] LABS: BURR CELLS MODERATE; DOHLE BODIES FEW; POLYCHROMASIA SLIGHT; TOTAL CELLS COUNTED 100 #CELLS; TOXIC GRANULATION MODERATE; VACUOLATION OF NEUTROPHILS SLIGHT
[2022-02-03 07:35] LABS: PLATELET SUFFICIENCY NORMAL (NORMAL)
[2022-02-03 07:55] LABS: ABG BASE EXCESS -9.2 mmol/L (-2.0-2.0); ARTERIAL BLOOD GAS PH 7.197 (7.35-7.45)
[2022-02-03 15:23] LABS: ARTERIAL BLOOD GAS PH 7.333 (7.35-7.45); ARTERIAL BLOOD GAS PO2 77.1 (80-90)
[2022-02-04] VITALS (74 sets, daily range): BP systolic 84–143; BP diastolic 47–70
[2022-02-04 05:16] LABS: ALKALINE PHOSPHATASE 81 U/L (45-117); BUN 28 mg/dl (7-24); CHLORIDE 103 mmol/L (98-107); POTASSIUM 3.4 mmol/L (3.5-5.1); SGOT/AST 24 IU/L (3-35); SGPT/ALT 18 U/L (12-78); SODIUM 133 mmol/L (136-145); TOTAL PROTEIN 5.2 gm/dL (6.4-8.2)
[2022-02-04 06:10] LABS: HEMATOCRIT 25.4 % (37.0-47.0); MEAN CELL VOLUME 86.1 fl (81.0-99.0); MEAN CORPUSCULAR HGB 27.5 pg (27.0-31.0); MEAN CORPUSCULAR HGB CONC 31.9 g/dl (33.0-37.0); MEAN PLATELET VOLUME 12.2 fl (9.6-12.3); PLATELET COUNT AUTOMATED 138 10*3/uL (130-400); RED BLOOD COUNT 2.95 10*6/uL (4.10-5.10); RED CELL DISTRI WIDTH 17.1 % (0-14.5); WHITE BLOOD COUNT 11.7 10*3/uL (4.8-10.8)
[2022-02-04 06:11] LABS: MANUAL DIFF REFLEX YES
[2022-02-04 07:05] LABS: TOTAL CELLS COUNTED 100 #CELLS
[2022-02-04 07:14] LABS: PLATELET SUFFICIENCY NORMAL (NORMAL)
[2022-02-04 07:16] LABS: BURR CELLS MODERATE
[2022-02-04 08:09] LABS: ABG BASE EXCESS -3.8 mmol/L (-2.0-2.0); ARTERIAL BLOOD GAS PH 7.345 (7.35-7.45); ARTERIAL BLOOD GAS PO2 108.6 (80-90)
[2022-02-05] VITALS (13 sets, daily range): BP systolic 127–164; BP diastolic 57–77
[2022-02-05 04:58] LABS: HEMATOCRIT 25.7 % (37.0-47.0); MEAN CELL VOLUME 85.7 fl (81.0-99.0); MEAN CORPUSCULAR HGB 26.7 pg (27.0-31.0); MEAN CORPUSCULAR HGB CONC 31.1 g/dl (33.0-37.0); MEAN PLATELET VOLUME 11.7 fl (9.6-12.3); PLATELET COUNT AUTOMATED 128 10*3/uL (130-400); RED CELL DISTRI WIDTH 17.4 % (0-14.5); WHITE BLOOD COUNT 13.8 10*3/uL (4.8-10.8)
[2022-02-05 05:04] LABS: MANUAL DIFF REFLEX YES
[2022-02-05 05:21] LABS: ALKALINE PHOSPHATASE 96 U/L (45-117); BUN 28 mg/dl (7-24); CHLORIDE 109 mmol/L (98-107); CREATININE 0.55 mg/dL (0.55-1.02); POTASSIUM 3.5 mmol/L (3.5-5.1); SGOT/AST 40 IU/L (3-35); SGPT/ALT 20 U/L (12-78); SODIUM 141 mmol/L (136-145); TOTAL PROTEIN 5.7 gm/dL (6.4-8.2)
[2022-02-05 07:19] LABS: TOTAL CELLS COUNTED 100 #CELLS
[2022-02-05 07:20] LABS: BURR CELLS MANY
[2022-02-05 07:22] LABS: PLATELET SUFFICIENCY LOW (NORMAL)
[2022-02-05 08:16] LABS: ABG BASE EXCESS -2.4 mmol/L (-2.0-2.0); ARTERIAL BLOOD GAS PH 7.309 (7.35-7.45); ARTERIAL BLOOD GAS PO2 89.5 (80-90)
[2022-02-06] VITALS (12 sets, daily range): BP systolic 116–178; BP diastolic 59–87
[2022-02-06 04:59] LABS: ALKALINE PHOSPHATASE 101 U/L (45-117); BUN 28 mg/dl (7-24); CHLORIDE 111 mmol/L (98-107); CREATININE 0.56 mg/dL (0.55-1.02); POTASSIUM 3.9 mmol/L (3.5-5.1); SGOT/AST 54 IU/L (3-35); SGPT/ALT 35 U/L (12-78); SODIUM 147 mmol/L (136-145); TOTAL PROTEIN 5.8 gm/dL (6.4-8.2)
[2022-02-06 06:29] LABS: HEMATOCRIT 26.1 % (37.0-47.0); MEAN CELL VOLUME 86.7 fl (81.0-99.0); MEAN CORPUSCULAR HGB 26.6 pg (27.0-31.0); MEAN CORPUSCULAR HGB CONC 30.7 g/dl (33.0-37.0); MEAN PLATELET VOLUME 12.2 fl (9.6-12.3); NUCLEATED RED BLOOD CELL 0.3 % (0.0-0.0); PLATELET COUNT AUTOMATED 140 10*3/uL (130-400); RED BLOOD COUNT 3.01 10*6/uL (4.10-5.10); RED CELL DISTRI WIDTH 17.6 % (0-14.5)
[2022-02-06 07:04] LABS: MANUAL DIFF REFLEX YES
[2022-02-06 07:36] LABS: TOTAL CELLS COUNTED 100 #CELLS
[2022-02-06 07:37] LABS: PLATELET SUFFICIENCY NORMAL (NORMAL)
[2022-02-06 07:38] LABS: BURR CELLS FEW; OVALOCYTES FEW
[2022-02-06 08:36] LABS: ABG BASE EXCESS 2.7 mmol/L (-2.0-2.0); ARTERIAL BLOOD GAS PH 7.361 (7.35-7.45); ARTERIAL BLOOD GAS PO2 99.8 (80-90)
[2022-02-07] VITALS (18 sets, daily range): BP systolic 106–199; BP diastolic 57–111
[2022-02-07 05:42] LABS: ALKALINE PHOSPHATASE 118 U/L (45-117); BUN 34 mg/dl (7-24); CHLORIDE 111 mmol/L (98-107); CREATININE 0.51 mg/dL (0.55-1.02); POTASSIUM 4.3 mmol/L (3.5-5.1); SGOT/AST 96 IU/L (3-35); SGPT/ALT 92 U/L (12-78); SODIUM 148 mmol/L (136-145); TOTAL PROTEIN 5.9 gm/dL (6.4-8.2)
[2022-02-07 06:18] LABS: HEMATOCRIT 27.2 % (37.0-47.0); MEAN CELL VOLUME 87.2 fl (81.0-99.0); MEAN CORPUSCULAR HGB 26.6 pg (27.0-31.0); MEAN CORPUSCULAR HGB CONC 30.5 g/dl (33.0-37.0); NUCLEATED RED BLOOD CELL 0.1 10*3/uL (0.0-0.0); NUCLEATED RED BLOOD CELL 0.9 % (0.0-0.0); PLATELET COUNT AUTOMATED 162 10*3/uL (130-400); RED BLOOD COUNT 3.12 10*6/uL (4.10-5.10)
[2022-02-07 06:20] LABS: MANUAL DIFF REFLEX YES
[2022-02-07 07:15] LABS: TOTAL CELLS COUNTED 100 #CELLS; TOXIC GRANULATION SLIGHT
[2022-02-07 07:16] LABS: PLATELET SUFFICIENCY NORMAL (NORMAL)
[2022-02-07 07:23] LABS: ATYPICAL LYMPHS 1 % (0-0)
[2022-02-07 07:25] LABS: OVALOCYTES FEW
[2022-02-07 08:01] LABS: ABG BASE EXCESS 4.6 mmol/L (-2.0-2.0); ARTERIAL BLOOD GAS PH 7.364 (7.35-7.45); ARTERIAL BLOOD GAS PO2 96.5 (80-90)
[2022-02-07 08:36] LABS: BILIRUBIN Negative (Negative); BLOOD 2+ (Negative); CLARITY Cloudy (Clear); COLOR Yellow (Yellow); GLUCOSE Negative (Negative); KETONE Negative (Negative); LEUKO ESTERASE Negative (Negative); NITRITE Negative (Negative); PH 5.5 (4.5-8.0); UROBILINOGEN 0.2 E.U./dl (0.0-1.0)
[2022-02-07 14:33] LABS: LIPASE 264 U/L (73-393)
[2022-02-08] VITALS (12 sets, daily range): BP systolic 102–154; BP diastolic 51–78
[2022-02-08 05:58] LABS: CHLORIDE 106 mmol/L (98-107); CREATININE 0.32 mg/dL (0.55-1.02); LIPASE 200 U/L (73-393); POTASSIUM 3.7 mmol/L (3.5-5.1); SGOT/AST 46 IU/L (3-35); SGPT/ALT 99 U/L (12-78); SODIUM 144 mmol/L (136-145); TOTAL PROTEIN 5.5 gm/dL (6.4-8.2)
[2022-02-08 06:00] LABS: ALKALINE PHOSPHATASE 118 U/L (45-117)
[2022-02-08 06:03] LABS: BUN 23 mg/dl (7-24)
[2022-02-08 06:16] LABS: HEMATOCRIT 27.5 % (37.0-47.0); MEAN CELL VOLUME 88.4 fl (81.0-99.0); MEAN CORPUSCULAR HGB 26.7 pg (27.0-31.0); MEAN CORPUSCULAR HGB CONC 30.2 g/dl (33.0-37.0); MEAN PLATELET VOLUME 12.2 fl (9.6-12.3); NUCLEATED RED BLOOD CELL 0.1 % (0.0-0.0); PLATELET COUNT AUTOMATED 172 10*3/uL (130-400); RED BLOOD COUNT 3.11 10*6/uL (4.10-5.10); RED CELL DISTRI WIDTH 17.6 % (0-14.5)
[2022-02-08 06:34] LABS: MANUAL DIFF REFLEX YES
[2022-02-08 07:31] LABS: PLATELET SUFFICIENCY NORMAL (NORMAL); POLYCHROMASIA SLIGHT; TARGET CELLS FEW; TOTAL CELLS COUNTED 100 #CELLS
[2022-02-08 07:32] LABS: OVALOCYTES FEW; SCHISTOCYTES FEW; TOXIC GRANULATION SLIGHT
[2022-02-08 07:33] LABS: VACUOLATION OF NEUTROPHILS SLIGHT
[2022-02-08 08:06] LABS: IRON 39 ug/dL (50-170)
[2022-02-08 08:15] LABS: ABG BASE EXCESS 4.3 mmol/L (-2.0-2.0); ARTERIAL BLOOD GAS PH 7.29 (7.35-7.45); ARTERIAL BLOOD GAS PO2 68.7 (80-90)
[2022-02-09] VITALS (12 sets, daily range): BP systolic 90–171; BP diastolic 47–86
[2022-02-09 06:25] LABS: HEMATOCRIT 28.8 % (37.0-47.0); MEAN CELL VOLUME 86.2 fl (81.0-99.0); MEAN CORPUSCULAR HGB 26.9 pg (27.0-31.0); MEAN CORPUSCULAR HGB CONC 31.3 g/dl (33.0-37.0); MEAN PLATELET VOLUME 12.2 fl (9.6-12.3); NUCLEATED RED BLOOD CELL 0.1 % (0.0-0.0); PLATELET COUNT AUTOMATED 217 10*3/uL (130-400); RED BLOOD COUNT 3.34 10*6/uL (4.10-5.10); RED CELL DISTRI WIDTH 16.7 % (0-14.5); WHITE BLOOD COUNT 14.1 10*3/uL (4.8-10.8)
[2022-02-09 06:35] LABS: BUN 19 mg/dl (7-24); CHLORIDE 100 mmol/L (98-107); POTASSIUM 4.2 mmol/L (3.5-5.1); SODIUM 138 mmol/L (136-145)
[2022-02-09 06:38] LABS: ALKALINE PHOSPHATASE 103 U/L (45-117); SGOT/AST 25 IU/L (3-35); SGPT/ALT 79 U/L (12-78); TOTAL PROTEIN 5.4 gm/dL (6.4-8.2)
[2022-02-09 06:40] LABS: MANUAL DIFF REFLEX YES
[2022-02-09 07:10] LABS: BURR CELLS FEW; OVALOCYTES FEW; PLATELET SUFFICIENCY NORMAL (NORMAL); POLYCHROMASIA SLIGHT; ROULEAUX SLIGHT; SCHISTOCYTES FEW; TOTAL CELLS COUNTED 100 #CELLS; TOXIC GRANULATION SLIGHT
[2022-02-09 07:56] LABS: ABG BASE EXCESS 9.8 mmol/L (-2.0-2.0); ARTERIAL BLOOD GAS PH 7.391 (7.35-7.45); ARTERIAL BLOOD GAS PO2 96.9 (80-90)
[2022-02-10] VITALS (12 sets, daily range): BP systolic 90–172; BP diastolic 45–89
[2022-02-10 05:16] LABS: BUN 17 mg/dl (7-24); CHLORIDE 95 mmol/L (98-107); CREATININE 0.27 mg/dL (0.55-1.02); POTASSIUM 4.1 mmol/L (3.5-5.1); SODIUM 134 mmol/L (136-145)
[2022-02-10 06:19] LABS: HEMATOCRIT 28.8 % (37.0-47.0); MEAN CELL VOLUME 85.5 fl (81.0-99.0); MEAN CORPUSCULAR HGB CONC 31.6 g/dl (33.0-37.0); MEAN PLATELET VOLUME 12.4 fl (9.6-12.3); PLATELET COUNT AUTOMATED 269 10*3/uL (130-400); RED BLOOD COUNT 3.37 10*6/uL (4.10-5.10); RED CELL DISTRI WIDTH 16.4 % (0-14.5); WHITE BLOOD COUNT 12.9 10*3/uL (4.8-10.8)
[2022-02-10 06:22] LABS: MANUAL DIFF REFLEX YES
[2022-02-10 07:50] LABS: PLATELET SUFFICIENCY NORMAL (NORMAL); TOTAL CELLS COUNTED 100 #CELLS
[2022-02-10 07:53] LABS: MICROCYTOSIS SLIGHT
[2022-02-10 09:18] LABS: ABG BASE EXCESS 11.3 mmol/L (-2.0-2.0); ARTERIAL BLOOD GAS PH 7.465 (7.35-7.45); ARTERIAL BLOOD GAS PO2 74.6 (80-90)
[2022-02-10 12:39] LABS: ABG BASE EXCESS 11.6 mmol/L (-2.0-2.0); ARTERIAL BLOOD GAS PH 7.488 (7.35-7.45)
[2022-02-11] VITALS (8 sets, daily range): BP systolic 109–150; BP diastolic 70–80
[2022-02-11 06:01] LABS: BUN 13 mg/dl (7-24); CREATININE < 0.15 mg/dL (0.55-1.02); SODIUM 140 mmol/L (136-145)
[2022-02-11 06:02] LABS: CHLORIDE 107 mmol/L (98-107); TOTAL PROTEIN 4.4 gm/dL (6.4-8.2)
[2022-02-11 06:03] LABS: ALKALINE PHOSPHATASE 68 U/L (45-117); SGOT/AST 19 IU/L (3-35); SGPT/ALT 47 U/L (12-78)
[2022-02-11 06:23] LABS: HEMATOCRIT 26.3 % (37.0-47.0); MEAN CELL VOLUME 86.2 fl (81.0-99.0); MEAN CORPUSCULAR HGB 27.2 pg (27.0-31.0); MEAN CORPUSCULAR HGB CONC 31.6 g/dl (33.0-37.0); MEAN PLATELET VOLUME 12.3 fl (9.6-12.3); PLATELET COUNT AUTOMATED 263 10*3/uL (130-400); RED BLOOD COUNT 3.05 10*6/uL (4.10-5.10); RED CELL DISTRI WIDTH 16.6 % (0-14.5); WHITE BLOOD COUNT 11.1 10*3/uL (4.8-10.8)
[2022-02-11 06:30] LABS: MANUAL DIFF REFLEX YES
[2022-02-11 07:09] LABS: TOTAL CELLS COUNTED 100 #CELLS
[2022-02-11 07:10] LABS: BURR CELLS FEW; OVALOCYTES FEW; PLATELET SUFFICIENCY NORMAL (NORMAL); POLYCHROMASIA SLIGHT
[2022-02-11 14:07] LABS: ACID FAST SPEC PROCESSING Concentration (.)
[2022-02-11] MEDS ORDERED: CEFDINIR300 MG PO ×2 (17:48)
[2022-02-12] VITALS (7 sets, daily range): BP systolic 96–121; BP diastolic 45–62
[2022-02-12 05:15] LABS: BUN 10 mg/dl (7-24); CHLORIDE 112 mmol/L (98-107); CREATININE 0.21 mg/dL (0.55-1.02); POTASSIUM 3.1 mmol/L (3.5-5.1); SGOT/AST 24 IU/L (3-35); SGPT/ALT 52 U/L (12-78); SODIUM 145 mmol/L (136-145)
[2022-02-12 05:16] LABS: ALKALINE PHOSPHATASE 77 U/L (45-117); TOTAL PROTEIN 4.3 gm/dL (6.4-8.2)
[2022-02-12 06:25] LABS: HEMATOCRIT 24.8 % (37.0-47.0); MEAN CELL VOLUME 87.6 fl (81.0-99.0); MEAN CORPUSCULAR HGB 26.9 pg (27.0-31.0); MEAN CORPUSCULAR HGB CONC 30.6 g/dl (33.0-37.0); MEAN PLATELET VOLUME 12.4 fl (9.6-12.3); PLATELET COUNT AUTOMATED 291 10*3/uL (130-400); RED BLOOD COUNT 2.83 10*6/uL (4.10-5.10); RED CELL DISTRI WIDTH 17.2 % (0-14.5); WHITE BLOOD COUNT 11.8 10*3/uL (4.8-10.8)
[2022-02-12 06:49] LABS: MANUAL DIFF REFLEX YES
[2022-02-12 07:05] LABS: TOTAL CELLS COUNTED 100 #CELLS
[2022-02-12 07:06] LABS: BURR CELLS FEW; OVALOCYTES FEW; PLATELET SUFFICIENCY NORMAL (NORMAL); POLYCHROMASIA SLIGHT; SCHISTOCYTES FEW
[2022-02-13] VITALS: BP 104/43
[2022-02-13 07:19] LABS: BASO % 0.2 % (0.0-1.0); EOS # 0.1 10*3/uL (0.0-0.4); HEMATOCRIT 29.8 % (37.0-47.0); LYMPH # 2.6 10*3/uL (1.3-4.4); LYMPH % 20.3 % (27.0-41.0); MEAN CELL VOLUME 88.2 fl (81.0-99.0); MEAN CORPUSCULAR HGB 27.2 pg (27.0-31.0); MEAN CORPUSCULAR HGB CONC 30.9 g/dl (33.0-37.0); MEAN PLATELET VOLUME 11.4 fl (9.6-12.3); MONO % 7.9 % (3.0-9.0); NEUT # 8.8 10*3/uL (2.3-7.9); NEUT % 68.9 % (47.0-73.0); PLATELET COUNT AUTOMATED 372 10*3/uL (130-400); RED BLOOD COUNT 3.38 10*6/uL (4.10-5.10); RED CELL DISTRI WIDTH 17.9 % (0-14.5); WHITE BLOOD COUNT 12.7 10*3/uL (4.8-10.8)
[2022-02-13 07:40] LABS: BUN 9 mg/dl (7-24); CHLORIDE 104 mmol/L (98-107); CREATININE 0.33 mg/dL (0.55-1.02); SODIUM 139 mmol/L (136-145)
[2022-02-13 08:00] VITALS: BP 130/57
[2022-02-13 08:04] LABS: POTASSIUM 4.1 mmol/L (3.5-5.1)
[2022-02-13 12:00] VITALS: BP 111/52
[2022-02-13 15:55] VITALS: BP 124/54
[2022-02-13 20:00] VITALS: BP 134/61
[2022-02-14] VITALS: BP 95/49
[2022-02-14 07:07] LABS: BASO % 0.2 % (0.0-1.0); EOS # 0.1 10*3/uL (0.0-0.4); EOS % 1.1 % (1.0-4.0); HEMATOCRIT 29.5 % (37.0-47.0); LYMPH # 2.1 10*3/uL (1.3-4.4); LYMPH % 17.5 % (27.0-41.0); MEAN CELL VOLUME 89.1 fl (81.0-99.0); MEAN CORPUSCULAR HGB 27.5 pg (27.0-31.0); MEAN CORPUSCULAR HGB CONC 30.8 g/dl (33.0-37.0); MEAN PLATELET VOLUME 11.1 fl (9.6-12.3); MONO # 1.1 10*3/uL (0.1-1.0); MONO % 8.7 % (3.0-9.0); NEUT # 8.7 10*3/uL (2.3-7.9); NEUT % 71.4 % (47.0-73.0); PLATELET COUNT AUTOMATED 345 10*3/uL (130-400); RED BLOOD COUNT 3.31 10*6/uL (4.10-5.10); WHITE BLOOD COUNT 12.2 10*3/uL (4.8-10.8)
[2022-02-14 07:28] LABS: CHLORIDE 101 mmol/L (98-107); POTASSIUM 3.7 mmol/L (3.5-5.1); SODIUM 138 mmol/L (136-145)
[2022-02-14 07:32] LABS: BUN 9 mg/dl (7-24); CREATININE 0.37 mg/dL (0.55-1.02)
[2022-02-14 08:00] VITALS: BP 123/45
[2022-02-14 13:10] VITALS: BP 117/48
[2022-02-14 16:00] VITALS: BP 82/42
[2022-02-14 16:42] LABS: ABG BASE EXCESS 8.1 mmol/L (-2.0-2.0); ARTERIAL BLOOD GAS PH 7.445 (7.35-7.45); ARTERIAL BLOOD GAS PO2 58.7 (80-90)
[2022-02-14 20:00] VITALS: BP 96/50
[2022-02-15] VITALS: BP 108/46
[2022-02-15 08:00] VITALS: BP 120/48
[2022-02-15 12:00] VITALS: BP 122/42
[2022-02-15 16:00] VITALS: BP 108/46
[2022-02-15 20:00] VITALS: BP 112/40
[2022-02-16] VITALS: BP 92/38
[2022-02-16 07:02] LABS: BASO % 0.2 % (0.0-1.0); EOS # 0.1 10*3/uL (0.0-0.4); EOS % 1.3 % (1.0-4.0); HEMATOCRIT 25.8 % (37.0-47.0); LYMPH % 20.4 % (27.0-41.0); MEAN CELL VOLUME 88.1 fl (81.0-99.0); MEAN CORPUSCULAR HGB 27.3 pg (27.0-31.0); MEAN PLATELET VOLUME 11.1 fl (9.6-12.3); MONO # 1.1 10*3/uL (0.1-1.0); MONO % 11.7 % (3.0-9.0); NEUT # 6.3 10*3/uL (2.3-7.9); NEUT % 65.9 % (47.0-73.0); PLATELET COUNT AUTOMATED 335 10*3/uL (130-400); RED BLOOD COUNT 2.93 10*6/uL (4.10-5.10); RED CELL DISTRI WIDTH 18.2 % (0-14.5); WHITE BLOOD COUNT 9.6 10*3/uL (4.8-10.8)
[2022-02-16 07:20] LABS: BUN 10 mg/dl (7-24); CHLORIDE 100 mmol/L (98-107); CREATININE 0.43 mg/dL (0.55-1.02); POTASSIUM 2.9 mmol/L (3.5-5.1); SGOT/AST 16 IU/L (3-35); SGPT/ALT 33 U/L (12-78); SODIUM 140 mmol/L (136-145)
[2022-02-16 07:22] LABS: ALKALINE PHOSPHATASE 90 U/L (45-117); TOTAL PROTEIN 5.5 gm/dL (6.4-8.2)
[2022-02-16 08:00] VITALS: BP 120/40
[2022-02-16 12:00] VITALS: BP 104/52
[2022-02-16 16:00] VITALS: BP 104/47
[2022-02-16 20:00] VITALS: BP 115/50
[2022-02-17] VITALS: BP 94/42
[2022-02-17] MEDS ORDERED: CARVEDILOL6.25 MG PO (02:17)
[2022-02-17] MEDS ORDERED: ENTRESTO 24 MG1 EACH PO (02:17)
[2022-02-17] MEDS ORDERED: ATORVASTATIN CA40 M1 PO (02:17)
[2022-02-17] MEDS ORDERED: ASPIRIN CHILDRE81 MG PO (02:17)
[2022-02-17] MEDS ORDERED: SERTRALINE HYDR50 MG PO (03:31)
== END 2022-02-17 06:17 | disposition short-term general hospital (02) | DRG 870 ==
LOC: ED 09:25 → EDHOLD 11:40 → ICCU 11:40 → 5E 02-12 16:10
PROVIDERS: Emergency Medicine; Internal Medicine; Internal Medicine Critical Care Medicine; Internal Medicine Infectious Disease; Internal Medicine Pulmonary Disease; Student in an Organized Health Care Education/Training Program; Surgery; ADMIT Internal Medicine; ATTEND Internal Medicine
PROC: 5A1955Z Respiratory Ventilation, Greater than 96 Consecutive Hours (ICD-10-PCS; principal; 2022-02-02)
PROC: 0BH17EZ Insertion of Endotracheal Airway into Trachea, Via Natural or Artificial Opening (ICD-10-PCS; 2022-02-02)
PROC: 02HV33Z Insertion of Infusion Device into Superior Vena Cava, Percutaneous Approach (ICD-10-PCS; 2022-02-02)
PROC: B548ZZA Ultrasonography of Superior Vena Cava, Guidance (ICD-10-PCS; 2022-02-02)
PROC: 5A09357 Assistance with Respiratory Ventilation, Less than 24 Consecutive Hours, Continuous Positive Airway Pressure (ICD-10-PCS; 2022-02-02)
PROC: 5A09357 Assistance with Respiratory Ventilation, Less than 24 Consecutive Hours, Continuous Positive Airway Pressure (ICD-10-PCS; 2022-02-10)
PROC: 4A02XM4 Measurement of Cardiac Total Activity, External Approach (ICD-10-PCS; 2022-02-14)
PROC: 3E073KZ Introduction of Other Diagnostic Substance into Coronary Artery, Percutaneous Approach (ICD-10-PCS; 2022-02-14)
PROC: 5A09357 Assistance with Respiratory Ventilation, Less than 24 Consecutive Hours, Continuous Positive Airway Pressure (ICD-10-PCS; 2022-02-15)
PROC: 5A09357 Assistance with Respiratory Ventilation, Less than 24 Consecutive Hours, Continuous Positive Airway Pressure (ICD-10-PCS; 2022-02-15)
PROC: 5A09357 Assistance with Respiratory Ventilation, Less than 24 Consecutive Hours, Continuous Positive Airway Pressure (ICD-10-PCS; 2022-02-15)
PROC: 5A09357 Assistance with Respiratory Ventilation, Less than 24 Consecutive Hours, Continuous Positive Airway Pressure (ICD-10-PCS; 2022-02-16)
DX: A41.9 Sepsis, unspecified organism (principal); E43 Unspecified severe protein-calorie malnutrition; J18.9 Pneumonia, unspecified organism; R65.21 Severe sepsis with septic shock; N17.0 Acute kidney failure with tubular necrosis; J80 Acute respiratory distress syndrome; I21.4 Non-ST elevation (NSTEMI) myocardial infarction; E87.20 Acidosis, unspecified; E87.1 Hypo-osmolality and hyponatremia; I42.9 Cardiomyopathy, unspecified; J44.0 Chronic obstructive pulmonary disease with (acute) lower respiratory infection; E86.0 Dehydration; F41.1 Generalized anxiety disorder; E78.5 Hyperlipidemia, unspecified; D64.9 Anemia, unspecified; E83.42 Hypomagnesemia; F41.0 Panic disorder [episodic paroxysmal anxiety]; I25.10 Atherosclerotic heart disease of native coronary artery without angina pectoris; G47.33 Obstructive sleep apnea (adult) (pediatric); E83.41 Hypermagnesemia; N18.9 Chronic kidney disease, unspecified; E87.6 Hypokalemia; R73.9 Hyperglycemia, unspecified; I12.9 Hypertensive chronic kidney disease with stage 1 through stage 4 chronic kidney disease, or unspecified chronic kidney disease; F32.9 Major depressive disorder, single episode, unspecified; Z20.822 Contact with and (suspected) exposure to COVID-19; Z88.1 Allergy status to other antibiotic agents; Z88.8 Allergy status to other drugs, medicaments and biological substances; Z90.49 Acquired absence of other specified parts of digestive tract; Z83.6 Family history of other diseases of the respiratory system; Z68.33 Body mass index [BMI] 33.0-33.9, adult

== ENCOUNTER → 2022-09-29 | Outpatient (CLI) | payer OTHER ==
[~2022-09-29] MED LIST changes: +AMOXICILLIN500 M3 PO; +ASPIRIN CHILDRE81 MG PO; +ATORVASTATIN CA40 M1 PO; +CARVEDILOL6.25 MG PO; +CEFDINIR300 MG PO; +CITALOPRAM40 MG PO; +ENTRESTO 24 MG1 EACH PO; +GABAPENTIN100 M2 PO; +GOOD NEIGHBOR L10 MG PO; +LEVOFLOXACIN750 M2 PO; +METFORMIN HYDR500 MG PO; +MUCUS RELIEF600 MG PO; +SERTRALINE HYDR50 MG PO; +VENTOLIN 02.5 MG/3 M INH
[2022-09-29 12:40] LABS: CPK 47 U/L (34-171)
== END | disposition home or self-care (01) ==
LOC: LAB 11:06
PROVIDERS: ATTEND Internal Medicine Nephrology
DX: G62.9 Polyneuropathy, unspecified (principal); M79.10 Myalgia, unspecified site; E53.8 Deficiency of other specified B group vitamins; E78.00 Pure hypercholesterolemia, unspecified; J43.9 Emphysema, unspecified; R91.1 Solitary pulmonary nodule

== ENCOUNTER → 2022-12-02 | Outpatient (CLI) | payer OTHER | END | disposition home or self-care (01) | LOC: US 00:26 | PROVIDERS: ATTEND Internal Medicine Nephrology | DX: N30.01 Acute cystitis with hematuria (principal); Z87.442 Personal history of urinary calculi ==

== ENCOUNTER → 2023-01-01 | Outpatient (CLI) | payer OTHER | END | disposition home or self-care (01) | LOC: CARD 12-12 00:45 | PROVIDERS: ATTEND Internal Medicine | DX: I10 Essential (primary) hypertension (principal); I42.9 Cardiomyopathy, unspecified; G45.9 Transient cerebral ischemic attack, unspecified ==

== ENCOUNTER → 2023-02-11 | Outpatient (CLI) | payer OTHER | END | disposition home or self-care (01) | LOC: RAD 01:10 | PROVIDERS: ATTEND Internal Medicine Nephrology | DX: J43.9 Emphysema, unspecified (principal); J84.10 Pulmonary fibrosis, unspecified ==

== ENCOUNTER → 2023-04-09 | Outpatient (CLI) | payer OTHER ==
[~2023-04-09] MED LIST changes: +FAMOTIDINE40 MG PO; +FLUONAZOLE150 M1 PO; +LEVETIRACETAM500 MG PO; +MONTELUKAST SOD10 MG PO; +NAPROXEN500 M1 PO; +NEURONTIN100 MG PO; +VALSARTAN80 MG PO
== END | disposition home or self-care (01) ==
LOC: LAB 12:09
PROVIDERS: ATTEND Internal Medicine Critical Care Medicine
DX: J84.9 Interstitial pulmonary disease, unspecified (principal); J43.2 Centrilobular emphysema; J96.11 Chronic respiratory failure with hypoxia; J45.50 Severe persistent asthma, uncomplicated; G25.81 Restless legs syndrome; G47.33 Obstructive sleep apnea (adult) (pediatric); Z68.35 Body mass index [BMI] 35.0-35.9, adult

== ENCOUNTER → 2023-04-13 | Outpatient (CLI) | payer OTHER ==
[2023-04-14 13:07] LABS: IGG SUBCLASS 1 453 mg/dL (248-810); IGG SUBCLASS 2 312 mg/dL (130-555); IGG SUBCLASS 3 65 mg/dL (15-102); IMMUNOGLOBULIN G, QNT 908 mg/dL (586-1602)
== END | disposition home or self-care (01) ==
LOC: LAB 00:35
PROVIDERS: ATTEND Internal Medicine Critical Care Medicine
DX: J84.9 Interstitial pulmonary disease, unspecified (principal); J43.2 Centrilobular emphysema; J96.11 Chronic respiratory failure with hypoxia; Z29.81 Encounter for HIV pre-exposure prophylaxis; G47.33 Obstructive sleep apnea (adult) (pediatric); Z68.33 Body mass index [BMI] 33.0-33.9, adult

== ENCOUNTER → 2023-05-12 | Outpatient (CLI) | payer OTHER | END | disposition home or self-care (01) | LOC: CT 03:34 | PROVIDERS: ATTEND Internal Medicine Critical Care Medicine | DX: J43.9 Emphysema, unspecified (principal); I25.10 Atherosclerotic heart disease of native coronary artery without angina pectoris ==

== ENCOUNTER 2023-05-28 20:18 | Emergency (ER) | payer OTHER ==
[~2023-05-28] VITALS: Ht 170.1 cm; Wt 96.8 kg
[2023-05-28 20:48] LABS: BASO % 0.5 % (0.0-1.0); EOS # 0.1 10*3/uL (0.0-0.4); EOS % 1.2 % (1.0-4.0); HEMATOCRIT 34.5 % (37.0-47.0); LYMPH % 33.5 % (27.0-41.0); MEAN CELL VOLUME 90.3 fl (81.0-99.0); MEAN CORPUSCULAR HGB 27.2 pg (27.0-31.0); MEAN CORPUSCULAR HGB CONC 30.1 g/dl (33.0-37.0); MEAN PLATELET VOLUME 10.7 fl (9.6-12.3); MONO # 0.6 10*3/uL (0.1-1.0); MONO % 10.6 % (3.0-9.0); NEUT # 3.2 10*3/uL (2.3-7.9); PLATELET COUNT AUTOMATED 170 10*3/uL (130-400); RED BLOOD COUNT 3.82 10*6/uL (4.10-5.10); RED CELL DISTRI WIDTH 16.4 % (0-14.5); WHITE BLOOD COUNT 5.9 10*3/uL (4.8-10.8)
[2023-05-28 21:11] LABS: BUN 12 mg/dl (9-23); CHLORIDE 105 mmol/L (98-107); POTASSIUM 3.3 mmol/L (3.4-5.1)
[2023-05-28] MEDS ORDERED: POTASSIUM CHLORIDE 20 MEQ TAB PO ONE (21:15)
[2023-05-28] MEDS ORDERED: SODIUM CHLORIDE 0.9% 1,000 ML IV ONE (21:35)
[2023-05-28 22:02] LABS: BILIRUBIN Negative (Negative); BLOOD Trace-Intact (Negative); CLARITY Clear (Clear); COLOR Yellow (Yellow); GLUCOSE 3+ (Negative); KETONE Negative (Negative); LEUKO ESTERASE Negative (Negative); NITRITE Negative (Negative); UROBILINOGEN 0.2 E.U./dl (0.0-1.0)
[2023-05-28 22:13] LABS: BACTERIA 1+; RBC 0-2 rbc/hpf (0-2)
== END 2023-05-28 22:50 | disposition home or self-care (01) ==
LOC: ED 20:18
PROVIDERS: Physician Assistant Medical
DX: J18.9 Pneumonia, unspecified organism (principal); Z20.822 Contact with and (suspected) exposure to COVID-19; R53.1 Weakness; J44.9 Chronic obstructive pulmonary disease, unspecified; K21.9 Gastro-esophageal reflux disease without esophagitis; I25.10 Atherosclerotic heart disease of native coronary artery without angina pectoris; F32.A Depression, unspecified; F41.9 Anxiety disorder, unspecified; I10 Essential (primary) hypertension; E78.5 Hyperlipidemia, unspecified; Z88.1 Allergy status to other antibiotic agents; Z88.8 Allergy status to other drugs, medicaments and biological substances; Z90.49 Acquired absence of other specified parts of digestive tract; Z98.890 Other specified postprocedural states; Z87.891 Personal history of nicotine dependence

== ENCOUNTER → 2023-11-11 | Outpatient (CLI) | payer OTHER | END | disposition home or self-care (01) | LOC: US 02:36 | PROVIDERS: ATTEND Internal Medicine Nephrology | DX: Z12.31 Encounter for screening mammogram for malignant neoplasm of breast (principal); Z13.820 Encounter for screening for osteoporosis; G25.81 Restless legs syndrome; Z78.0 Asymptomatic menopausal state ==

== ENCOUNTER → 2023-12-10 | Outpatient (CLI) | payer OTHER | END | disposition home or self-care (01) | LOC: CT 13:00 | PROVIDERS: ATTEND Internal Medicine Critical Care Medicine | DX: R91.1 Solitary pulmonary nodule (principal); J43.2 Centrilobular emphysema; J45.50 Severe persistent asthma, uncomplicated; G25.81 Restless legs syndrome; G47.33 Obstructive sleep apnea (adult) (pediatric); Z99.81 Dependence on supplemental oxygen; Z68.30 Body mass index [BMI] 30.0-30.9, adult; Z91.198 Patient's noncompliance with other medical treatment and regimen for other reason; Z86.16 Personal history of COVID-19; Z87.891 Personal history of nicotine dependence ==

== ENCOUNTER 2023-12-15 23:16 | Emergency (ER) | payer OTHER ==
[~2023-12-15] VITALS: Wt 90.7 kg
[2023-12-15] MEDS ORDERED: Albuterol Sulf/Ipratropium 3 ML VIAL NEB ONE (23:25)
[2023-12-15] MEDS ORDERED: methylPREDNISolone sod succ 125 MG VIAL IV ONE (23:25)
== END 2023-12-16 01:50 | disposition home or self-care (01) ==
LOC: ED 23:16
DX: J44.1 Chronic obstructive pulmonary disease with (acute) exacerbation (principal); K21.9 Gastro-esophageal reflux disease without esophagitis; I10 Essential (primary) hypertension; F41.9 Anxiety disorder, unspecified; Z88.1 Allergy status to other antibiotic agents; Z90.49 Acquired absence of other specified parts of digestive tract; Z98.890 Other specified postprocedural states; Z87.891 Personal history of nicotine dependence

== ENCOUNTER → 2024-02-15 | Outpatient (CLI) | payer OTHER ==
[~2024-02-15] MED LIST changes: +ESOMEPRAZOLE MA40 M1 PO; +SPIRIVA RESPIMAT4 GM INH; +ZITHROMAX250 MG PO
[2024-02-15 15:20] LABS: BASO % 0.3 % (0.0-1.0); EOS # 0.2 10*3/uL (0.0-0.4); EOS % 1.5 % (1.0-4.0); HEMATOCRIT 35.5 % (37.0-47.0); MEAN CELL VOLUME 94.7 fl (81.0-99.0); MEAN CORPUSCULAR HGB 28.8 pg (27.0-31.0); MEAN CORPUSCULAR HGB CONC 30.4 g/dl (33.0-37.0); MEAN PLATELET VOLUME 10.7 fl (9.6-12.3); MONO % 7.1 % (3.0-9.0); NEUT # 8.1 10*3/uL (2.3-7.9); PLATELET COUNT AUTOMATED 213 10*3/uL (130-400); RED BLOOD COUNT 3.75 10*6/uL (4.10-5.10); RED CELL DISTRI WIDTH 14.5 % (0-14.5); WHITE BLOOD COUNT 13.7 10*3/uL (4.8-10.8)
== END | disposition home or self-care (01) ==
LOC: LAB 14:52
PROVIDERS: ATTEND Internal Medicine Nephrology
DX: K92.1 Melena (principal)

== ENCOUNTER 2024-08-05 15:39 | Emergency (ER) | payer OTHER ==
[~2024-08-05] VITALS: Ht 167.6 cm; Wt 90.3 kg
[2024-08-05] MEDS ORDERED: Albuterol Sulfate 2.5 MG/3 ML VIAL NEB ONE (16:40)
[2024-08-05] MEDS ORDERED: methylPREDNISolone sod succ 125 MG VIAL IV ONE (16:40)
[2024-08-05] MEDS ORDERED: Doxycycline Hyclate 100 MG CAPSULE PO ONE (16:40)
[2024-08-05] MEDS ORDERED: MAGNESIUM SULFATE 50 ML IV ONE (16:40)
[2024-08-05 17:04] LABS: BASO # 0.1 10*3/uL (0.0-0.1); BASO % 0.4 % (0.0-1.0); EOS # 0.2 10*3/uL (0.0-0.4); EOS % 1.5 % (1.0-4.0); HEMATOCRIT 30.5 % (37.0-47.0); MEAN CELL VOLUME 91.3 fl (81.0-99.0); MEAN CORPUSCULAR HGB 27.8 pg (27.0-31.0); MEAN CORPUSCULAR HGB CONC 30.5 g/dl (33.0-37.0); MEAN PLATELET VOLUME 11.1 fl (9.6-12.3); MONO # 1.1 10*3/uL (0.1-1.0); MONO % 8.2 % (3.0-9.0); NEUT # 8.3 10*3/uL (2.3-7.9); NEUT % 63.6 % (47.0-73.0); PLATELET COUNT AUTOMATED 210 10*3/uL (130-400); RED BLOOD COUNT 3.34 10*6/uL (4.10-5.10); WHITE BLOOD COUNT 13.1 10*3/uL (4.8-10.8)
[2024-08-05 17:34] LABS: BUN 13 mg/dl (9-23); CHLORIDE 100 mmol/L (98-107)
[2024-08-05] MEDS ORDERED: PREDNISONE20 M1 PO (17:51)
[2024-08-05] MEDS ORDERED: VIBRAMYCIN100 MG PO (17:51)
== END 2024-08-05 18:36 | disposition home or self-care (01) ==
LOC: ED 15:39
PROVIDERS: Emergency Medicine
DX: J44.1 Chronic obstructive pulmonary disease with (acute) exacerbation (principal); I25.10 Atherosclerotic heart disease of native coronary artery without angina pectoris; F32.A Depression, unspecified; F41.9 Anxiety disorder, unspecified; I10 Essential (primary) hypertension; E78.00 Pure hypercholesterolemia, unspecified; Z79.899 Other long term (current) drug therapy; F17.210 Nicotine dependence, cigarettes, uncomplicated; Z88.1 Allergy status to other antibiotic agents; Z90.49 Acquired absence of other specified parts of digestive tract; Z98.890 Other specified postprocedural states

== ENCOUNTER → 2025-01-05 | Outpatient (CLI) | payer OTHER ==
[~2025-01-05] MED LIST changes: +PREDNISONE20 M1 PO; +VIBRAMYCIN100 MG PO
== END | disposition home or self-care (01) ==
LOC: CT 13:50
PROVIDERS: ATTEND Internal Medicine Critical Care Medicine
DX: Z12.2 Encounter for screening for malignant neoplasm of respiratory organs (principal); R91.8 Other nonspecific abnormal finding of lung field; J43.2 Centrilobular emphysema; J96.11 Chronic respiratory failure with hypoxia; J45.50 Severe persistent asthma, uncomplicated; G25.81 Restless legs syndrome; G47.33 Obstructive sleep apnea (adult) (pediatric); Z91.198 Patient's noncompliance with other medical treatment and regimen for other reason; Z86.16 Personal history of COVID-19; Z87.891 Personal history of nicotine dependence; Z68.32 Body mass index [BMI] 32.0-32.9, adult; Z99.81 Dependence on supplemental oxygen

== ENCOUNTER → 2025-02-16 | Outpatient (CLI) | payer OTHER | END | disposition home or self-care (01) | LOC: CT 09:00 | PROVIDERS: ATTEND Internal Medicine Critical Care Medicine | DX: J43.2 Centrilobular emphysema (principal); I70.0 Atherosclerosis of aorta; J96.11 Chronic respiratory failure with hypoxia; J45.50 Severe persistent asthma, uncomplicated; R91.8 Other nonspecific abnormal finding of lung field; G47.33 Obstructive sleep apnea (adult) (pediatric); Z99.81 Dependence on supplemental oxygen; Z87.891 Personal history of nicotine dependence; Z91.198 Patient's noncompliance with other medical treatment and regimen for other reason; Z86.16 Personal history of COVID-19; Z68.32 Body mass index [BMI] 32.0-32.9, adult ==